=== PATIENT | male | born 1970 | race Caucasian/White ===

== ENCOUNTER 2019-02-20 22:18 | Inpatient (IN) ==
--- NOTE | 2019-02-20 22:40 | Emergency Department Note ---
Weakness HPI - General Chief complaint: Stroke Symptoms Stated complaint: Numbness to right side Time Seen by Provider: 02/20/19 22:34 Source: family Mode of arrival: ambulatory Limitations: no limitations - History of Present Illness HPI Narrative: Patient reports tingling to the right lower extremity as well as 2 fingers right hand. His symptoms started today at about 2 PM. Prior history of stroke, smoker, on home hemodialysis. His dialysis physician is at [facility], used to be Dr. Gavin. He denies chest pain, denies shortness of breath. He's had no nausea vomiting, no facial droop, no diplopia. He denies headache. No abdominal pain, - Related Data Home Medications Medication Instructions Recorded Confirmed Darifenacin Hydrobromide [Enablex] 7.5 mg PO HS 05/23/15 05/23/15 Epoetin Chris [Epogen] 8,000 unit SC 3XW 05/23/15 05/23/15 Esomeprazole Magnesium 40 mg PO DAILY 05/23/15 05/23/15 Fesoterodine Fumarate [Toviaz] 8 mg PO DAILY 05/23/15 05/23/15 Insulin Aspart [Novolog] 0 unit SC UD 05/23/15 05/23/15 Insulin Glargine, Human [Lantus] 7.5 units SC BID@05/23/15 05/23/15 Lanthanum Carbonate [Fosrenol] 2,000 mg CHEWED BIDP PRN 05/23/15 05/23/15 Lanthanum Carbonate [Fosrenol] 3,000 mg CHEWED TIDCC 05/23/15 05/23/15 Levothyroxine [Synthroid] 50 mcg PO DAILY 05/23/15 05/23/15 Lisinopril [Zestril] 40 mg PO BID 05/23/15 05/23/15 Tamsulosin [Flomax] 0.4 mg PO HS 05/23/15 05/23/15 cloNIDine HCL [Catapres] 0.2 mg PO DAILY 05/23/15 05/23/15 clonazePAM [KlonoPIN] 1 mg PO HSP PRN 05/23/15 05/23/15 oxyCODONE HCL [Oxycodone HCl] 7.5 - 15 mg PO QIDP PRN 05/23/15 05/23/15 Allergies Allergy/AdvReac Type Severity Reaction Status Date / Time gabapentin [From NEURONTIN] AdvReac Mild BEHAVED Verified 02/20/19 22:26 IF INTOXICATED morphine [MORPHINE] AdvReac Mild ITCH Verified 02/20/19 22:26 Review of Systems Constitutional: Reports: weakness Eyes: Denies: eye pain ENT ED: Denies: ear pain, throat pain Cardiovascular: Reports: dyspnea on exertion. Denies: chest pain Respiratory: Reports: shortness of breath Gastrointestinal: Denies: abdominal pain, nausea, vomiting Musculoskeletal: Denies: back pain Past Medical History - Past Medical History [facility] Narrative: History of blindness left eye. History of CVA. History of COPD. Source: nursing notes reviewed Medical history: Reports: CAD (coronary artery disease), chronic anticoagulation, CVA, DM, hypertension, renal disease, thyroid disease Psychiatric history: Reports: no psych history Surgical history ED: Reports: vascular surgery - Social History smoking status: Never smoker Physical Exam Limitations: no limitations General appearance: alert, in no apparent distress Head: atraumatic, normocephalic, normal inspection Eye: Present: normal appearance, EOMI, visual kellogg intact, other (visual field intact to the right eye. Patient is blind on the left side.). Absent: periorbital swelling, periorbital tenderness ENT: normal exam, normal oropharynx, mucous membranes moist, other (speech is not slurred. Tongue is midline.) Neck: Present: normal inspection, full ROM, trachea midline. Absent: tenderness, meningismus Chest: Present: normal inspection, symmetric chest wall rise Respiratory: Present: normal lung sounds bilaterally Cardiovascular: Present: regular rate, normal heart sounds, systolic murmur, other (occasional extra beat audible.) Abdominal: Present: soft. Absent: distention, tenderness, guarding Extremities: Present: normal inspection, full ROM. Absent: tenderness, joint swelling Back: Present: full ROM. Absent: CVA tenderness (R), CVA tenderness (L) Neurological: Present: alert, oriented X3, motor sensory deficit, other (patient has deficit of sensation to the side of the arm, forearm on the right side. Also lateral side of right leg. Going down to the area of the ankle. With diminished sensation over the entire right lateral leg. Normal reflexes, normal motor movement to both upper and lower extremities.) Psychiatric: Present: normal affect Skin: Present: warm, normal color Course - Reevaluation(s) Reevaluation #1: Patient went to CT scan emergently. We followed the stroke code stroke protocol. Head CT showing no hydrocephalus. No parenchymal bleed. He did have a white matter hypodensity adjacent to the left caudate nucleus suspicious for lacunar infarct. Started on small amount of IV fluids up. He does take Plavix which he states he has taken today. I spoke with the stroke neurologist Dr. Hendricks of [place]. They did not recommend TPA as he is out of the window. He is not a candidate for CT angiogram of his neck or head as his creatinine is 12. They recommended admitting him to the hospital here for further stroke monitoring and workup. Vital Signs Temperature 98.3 F 02/20/19 22:20 Pulse Rate 74 02/20/19 22:20 Respiratory Rate 15 02/20/19 22:20 Blood Pressure 179/96 02/20/19 22:20 Pulse Oximetry (%) 100 02/20/19 22:20 Temperature 98.3 F 02/20/19 22:20 Pulse Rate 74 02/20/19 22:20 Respiratory Rate 15 02/20/19 22:20 Blood Pressure 179/96 02/20/19 22:20 Pulse Oximetry (%) 100 02/20/19 22:20 Weakness - MDM Narrative Medical decision making narrative: Final impression is acute stroke, left hemispheric. Plan is hospital admission spoke with Dr. Montanez. - Lab Data Result diagrams: 02/20/19 22:25 02/20/19 22:25 Lab Results 02/20/19 02/20/19 02/20/19 Range/Units 22:25 22:25 22:25 WBC 5.2 (4.5-11.0) K/mcL RBC 3.22 L (4.50-5.90) M/mcL Hgb 10.9 L (13.5-16.5) g/dL Hct 30.9 L (41.0-55.0) % MCV 96.0 (80.0-100.0) fL MCH 33.8 (26.0-34.0) pg MCHC 35.2 (31.0-36.0) g/dL RDW 12.2 (11.5-14.5) % Plt Count 219 (140-440) K/mcL MPV 10.1 (7.4-10.4) fL Gran % 64.6 (38.0-78.0) % Lymph % (Auto) 21.0 (15.5-49.0) % [place] % (Auto) 9.9 (1.0-12.0) % Eos % (Auto) 3.5 (0.0-7.0) % Baso % (Auto) 1.0 (0.0-2.0) % Gran # 3.3 (1.8-8.0) K/mcL Lymph # (Auto) 1.1 L (1.5-4.8) K/mcL [place] # (Auto) 0.5 (0.1-0.9) K/mcL Eos # (Auto) 0.2 (0.0-0.7) K/mcL Baso # (Auto) 0.1 (0.0-0.3) K/mcL PT 13.3 (11.9-14.5) sec INR 1.0 (0.9-1.1) APTT 34 (20-37) sec Sodium 135 (133-145) mmol/L Potassium 4.7 (3.3-5.1) mmol/L Chloride 94 L (96-108) mmol/L Carbon Dioxide 23 (22-30) mmol/L Anion Gap 18.0 H (8-16) BUN 108 H* (6-20) mg/dl Creatinine 12.2 H* (0.7-1.2) mg/dl GFR Calculation 4 Glucose 281 H (70-105) mg/dL Calcium 8.1 L (8.6-10.4) mg/dl Hold Red Top Not Reportable Disposition Pt seen by [facility] [employer]/PA only: No Clinical Impression: Stroke Disposition: Xfer As Inpt ([facility]) Condition: Good Referrals: Gasper Clarke MD [Primary Care Provider] -
[2019-02-20 23:01] LABS: Basophils # (Auto) 0.1 K/mcL (0.0-0.3); Eosinophils # (Auto) 0.2 K/mcL (0.0-0.7); Eosinophils % (Auto) 3.5 % (0.0-7.0); Granulocytes % (Auto) 64.6 % (38.0-78.0); Lymphocytes # (Auto) 1.1 K/mcL (1.5-4.8); Mean Corpuscular HGB Conc 35.2 g/dL (31.0-36.0); Monocytes # (Auto) 0.5 K/mcL (0.1-0.9); Monocytes % (Auto) 9.9 % (1.0-12.0); Platelet Count 219 K/mcL (140-440); RBC 3.22 M/mcL (4.50-5.90); Red Cell Distribution Width 12.2 % (11.5-14.5)
[2019-02-20 23:20] LABS: Blood Urea Nitrogen 108 mg/dl (6-20)
[2019-02-20] MEDS ORDERED: 0.45 % SODIUM CHLORIDE 1,000 ML IV SCH (23:45)
[2019-02-20] MEDS ORDERED: ACETAMINOPHEN 325 MG TABLET PO PRN (23:55)
[2019-02-20] MEDS ORDERED: ONDANSETRON 4 MG/2 ML VIAL IV PRN (23:55)
[2019-02-21] MEDS ORDERED: ASPIRIN 81 MG TAB.CHEW CHEWED ONE (00:18)
[2019-02-21] MEDS: 0.45 % SODIUM CHLORIDE 500 ML IV SCH ×2 (00:22→01:01)
[2019-02-21] MEDS ORDERED: cloNIDine HCL 0.1 MG TABLET PO SCH ×2 (00:30→21:00)
[2019-02-21] MEDS ORDERED: amLODIPine 5 MG TABLET PO ONE (01:25)
[2019-02-21] MEDS ORDERED: amLODIPine 5 MG TABLET ONE (02:27)
[2019-02-21] MEDS ORDERED: NICOTINE 14 MG PATCH ONE (03:08)
--- NOTE | 2019-02-21 04:57 | Cat Scan Report ---
CLINICAL INFORMATION: Right leg and left numbness evaluate for CVA COMPARISON: None. TECHNIQUE: 2.5 mm helical slices were obtained in the skull base to vertex. Following reconstruction, axial reformatted images were reviewed at bone and parenchymal windows. The exam was performed using radiation dose optimization techniques including, but not limited to, automated exposure control, adjustment of the mA and/or kV according to patient size and use of iterative reconstruction technique. FINDINGS: The ventricles, sulci, fissures, and cisterns are symmetrically enlarged compatible with moderate atrophy unexpected for age (49). No extra-axial fluid collections identified. Extensive, predominantly nodular, dural calcification is seen along the seen along the falx, tentorium. Lesser, more linear, dural calcification is scattered throughout the cerebrum and cerebellum. Moderate patchy ischemic changes are noted in the deep cerebral white matter. There are also scattered remote lacunar infarcts in the basal ganglia ranging up to six mm in the right lentiform nucleus. A 7 mm old lacunar infarct is noted in the deep left frontal white matter. There is no acute cerebral hemorrhage, mass effect or edema Bone windows show no osseous abnormality. IMPRESSION: 1. No intracranial hemorrhage, edema or other acute finding 2. Moderate atrophy with moderate patchy chronic ischemic changes in the deep cerebral white matter - unexpected in this age 3. 7 mm old lacunar infarct deep left frontal white matter and a 6 mm remote lacunar infarct in the right lentiform nucleus. Scattered remote punctate lacunar infarcts throughout the basal ganglia. 4. Extensive nodular dural calcification including the tentorium and falx with lesser linear dural calcification throughout the cerebrum and cerebellum.. Possible etiologies include chronic intracranial hypotension, sarcoidosis, old tuberculosis, hyperthyroidism, and chronic renal failure. Interpreted and Authenticated by: Martin Gasca 02/21/19
[2019-02-21] MEDS ORDERED: DEXTROSE 50% 50 ML SYRINGE IV ONE (07:08)
[2019-02-21] MEDS ORDERED: DEXTROSE 50% 50 ML VIAL IV ONE ×2 (07:12→07:15)
--- NOTE | 2019-02-21 07:12 | Nephrology Consult Note ---
History of Present Illness - Reason for Consult Patient information: Note initiated : 02/21/19 at 7:09 am Patient: Conner Khan 49 y/o M admitted on 02/21/19 for Numbness to right side. Consult date: 02/21/19 end stage renal disease Requesting physician: Albaro Tellez - Chief Complaint Right sided tingling - History of Present Illness Conner Khan is a 49-year old male with end stage renal disease on home di alysis. He presented to ED for tingling of the right lower extremity and right hand 2 fingers and admitted. His left arm AV fistula accessed by his with button hole technique. He stated irregular schedule. Last dialysis was on Friday. Review of Systems Constitutional: no chills, no fever(s) Nose, mouth and throat: no nasal congestion, no sore throat Cardiovascular: no chest pain, no palpatations Respiratory: no cough, no wheezing Gastrointestinal: no abdominal pain, no nausea Genitourinary: no dysuria, no hematuria Musculoskeletal: no back pain, no joint swelling Integumentary: no rash, no wounds Neurological: no headache(s), no syncope Psychiatric: no anxiety, no panic attacks Endocrine: no cold intolerance, no heat intolerance Hematologic/Lymphatic: no easy bleeding, no easy bruising Allergic/Immunologic: no tongue swelling, no uticaria Past History Past medical history: Medical History Intractable nausea and vomiting (Chronic) Fever (Chronic) SIRS (systemic inflammatory response syndrome) (Chronic) Smoker (Chronic) RAD (reactive airway disease) (Chronic) Anxiety disorder (Chronic) Renal osteodystrophy (Chronic) BPH (benign prostatic hyperplasia) (Chronic) GERD (gastroesophageal reflux disease) (Chronic) DJD (degenerative joint disease) (Chronic) Gastroparesis (Chronic) Chronic pain (Chronic) Hypertension, essential (Chronic) Hypothyroidism (Chronic) Diabetes mellitus, type II (Chronic) End stage renal disease (Chronic) Past surgical history: Left arm AV fistula. Past family history: No history of kidney disease. Past social history: History of smoking. Medications and Allergies Home Medications Medication Instructions Recorded Confirmed Type Epoetin Chris [Epogen] 2,000 unit SC WEEKLY 05/23/15 02/21/19 History Insulin Aspart [Novolog] 0 unit SC UD 05/23/15 02/21/19 History Insulin Glargine, Human [Lantus] 7.5 units SC BID@11,23 05/23/15 02/21/19 History Lanthanum Carbonate [Fosrenol] 1,000 mg CHEWED TIDCC 05/23/15 02/21/19 History Lanthanum Carbonate [Fosrenol] 500 mg CHEWED BIDP PRN 05/23/15 02/21/19 History Levothyroxine [Synthroid] 50 mcg PO DAILY 05/23/15 02/21/19 History Lisinopril [Zestril] 20 mg PO BID 05/23/15 02/21/19 History cloNIDine HCL [Catapres] 0.2 mg PO HS 05/23/15 02/21/19 History clonazePAM [KlonoPIN] 1 mg PO HSP PRN 05/23/15 02/21/19 History oxyCODONE HCL [Oxycodone HCl] 7.5 - 15 mg PO QIDP PRN 05/23/15 02/21/19 History Calcium Carbonate [Tums] 500 mg PO PRN PRN 02/21/19 02/21/19 History Clopidogrel Bisulfate [Plavix] 75 mg PO DAILY 02/21/19 02/21/19 History Methadone HCl [Dolophine HCl] 10 mg PO TID 02/21/19 02/21/19 History Nut.tx.impaired Renal Fxn,Soy 237 ml PO Q4H 02/21/19 02/21/19 History [Nepro] Pnv No.122/Iron/Folic Acid 1 each PO DAILY 02/21/19 02/21/19 History [ Multi Tablet] amLODIPine [Norvasc] 10 mg PO DAILY 02/21/19 02/21/19 History Allergies Allergy/AdvReac Type Severity Reaction Status Date / Time gabapentin [From NEURONTIN] AdvReac Mild BEHAVED Verified 02/20/19 22:26 IF INTOXICATED morphine [MORPHINE] AdvReac Mild ITCH Verified 02/20/19 22:26 Exam - Vital Signs Vital signs: Temp Pulse Resp BP Pulse Ox 97.9 F 61 18 164/76 99 02/21/19 04:00 02/21/19 04:00 02/21/19 04:00 02/21/19 04:00 02/21/19 04:00 - General Appearance General appearance: appears started age EENT: mucous membranes moist Neck: supple Respiratory: clear Cardiology: no edema Gastrointestinal: no tenderness Integumentary: warm and dry Neurologic: alert and oriented x3 Musculoskeletal: no deformities Psychiatric: mood/affect appropriate Results - Lab Results 02/20/19 22:25 02/20/19 22:25 Most recent lab results Calcium 8.1 mg/dl (8.6-10.4) L 02/20/19 22:25 Assessment and Plan (1) End stage renal disease The patient is on home dialysis through left arm AV fistula with button hole technique by his . He stated irregular schedule. Last dialysis was on Friday. He declined AV fistula to be accessed by hospital staff. Plan: Hemodialysis at home if discharged today. Status: Chronic Priority: Medium
[2019-02-21] MEDS ORDERED: ASPIRIN 81 MG TAB.CHEW PO ONE (07:35)
[2019-02-21 07:36] LABS: Basophils # (Auto) 0 K/mcL (0.0-0.3); Basophils % (Auto) 0.8 % (0.0-2.0); Eosinophils # (Auto) 0.2 K/mcL (0.0-0.7); Lymphocytes # (Auto) 1.4 K/mcL (1.5-4.8); Lymphocytes % (Auto) 26.2 % (15.5-49.0); Mean Cell Volume 96.9 fL (80.0-100.0); Mean Corpuscular HGB Conc 33.9 g/dL (31.0-36.0); Monocytes # (Auto) 0.7 K/mcL (0.1-0.9); Platelet Count 197 K/mcL (140-440); RBC 3.01 M/mcL (4.50-5.90); Red Cell Distribution Width 12.9 % (11.5-14.5)
--- NOTE | 2019-02-21 07:43 | Internal Med History&Physical ---
Medical - H&P: HPI Patient information: Note initiated : 02/21/19 at 7:41 am Service Date, if different from initiated Date: [] Patient: Conner Khan a 49 y/o M admitted on 02/21/19 for Numbness to right side. Chief Complaint: [] History of present illness: Mr. Khan is a 49 year old M Presents to the ED with right side deficits. Patient is on dialysis has a history of diabetes and hypertension and a stroke in 2016, reports since 1400 having right arm and leg numbness and tingling eventually facial numbness. Patient states that yesterday he developed some perioral tingling and numbness which happens to him on occasion when he states his calcium goes low. He also gets some tingling other places body arms shoulders hands. Will concern at this time was when it moved to his hand it went up towards his arm and he had similar symptoms a few days prior to his first stroke in 2016. Which is why he presented to the ED. His calcium is mildly low. And ask if his symptoms are changed overnight he says he cannot tell. And discussing this further with him he does feel it is more related to his calcium than a stroke. He has had some diarrhea as since August. Patient was seen at [facility] in November for weakness. He was told at that time he had C. difficile antibodies but not active disease. Denies any focal weakness. He did have a stroke 2016 and has some residual slurring. CT brain in the ED showed old lacunar infarcts. Review of Systems: Pertinent positives as above. Denies head ache/fever/chills/nausea/vomiting/chest or abdominal pain/cough/dyspnea. Remaining 10 point review of system reviewed negative Medical - H&P: PMH Medical history: Medical History Intractable nausea and vomiting (Chronic) Fever (Chronic) SIRS (systemic inflammatory response syndrome) (Chronic) Smoker (Chronic) RAD (reactive airway disease) (Chronic) Anxiety disorder (Chronic) Renal osteodystrophy (Chronic) BPH (benign prostatic hyperplasia) (Chronic) GERD (gastroesophageal reflux disease) (Chronic) DJD (degenerative joint disease) (Chronic) Gastroparesis (Chronic) Chronic pain (Chronic) Hypertension, essential (Chronic) Hypothyroidism (Chronic) Diabetes mellitus, type II (Chronic) End stage renal disease (Chronic) Surgical history: vascular surgery Left upper extremity fistula Parathyroid gland surgery Left eye surgery with graft from the abdomen to the eye socket Tonsillectomy Family history: Mother cancer Father had arrhythmia Social history: Patient smokes three quarters of pack per day drinks alcohol rarely lives with his Medical - H&P: Meds Home Medications Medication Instructions Recorded Confirmed Type Epoetin Chris [Epogen] 2,000 unit SC WEEKLY 05/23/15 02/21/19 History Insulin Aspart [Novolog] 0 unit SC UD 05/23/15 02/21/19 History Insulin Glargine, Human [Lantus] 7.5 units SC BID@05/23/15 02/21/19 History Lanthanum Carbonate [Fosrenol] 1,000 mg CHEWED TIDCC 05/23/15 02/21/19 History Lanthanum Carbonate [Fosrenol] 500 mg CHEWED BIDP PRN 05/23/15 02/21/19 History Levothyroxine [Synthroid] 50 mcg PO DAILY 05/23/15 02/21/19 History Lisinopril [Zestril] 20 mg PO BID 05/23/15 02/21/19 History cloNIDine HCL [Catapres] 0.2 mg PO HS 05/23/15 02/21/19 History clonazePAM [KlonoPIN] 1 mg PO HSP PRN 05/23/15 02/21/19 History oxyCODONE HCL [Oxycodone HCl] 7.5 - 15 mg PO QIDP PRN 05/23/15 02/21/19 History Calcium Carbonate [Tums] 500 mg PO PRN PRN 02/21/19 02/21/19 History Clopidogrel Bisulfate [Plavix] 75 mg PO DAILY 02/21/19 02/21/19 History Methadone HCl [Dolophine HCl] 10 mg PO TID 02/21/19 02/21/19 History Nut.tx.impaired Renal Fxn,Soy 237 ml PO Q4H 02/21/19 02/21/19 History [Nepro] Pnv No.122/Iron/Folic Acid 1 each PO DAILY 02/21/19 02/21/19 History [ Multi Tablet] amLODIPine [Norvasc] 10 mg PO DAILY 02/21/19 02/21/19 History Allergies Allergy/AdvReac Type Severity Reaction Status Date / Time gabapentin [From NEURONTIN] AdvReac Mild BEHAVED Verified 02/20/19 22:26 IF INTOXICATED morphine [MORPHINE] AdvReac Mild ITCH Verified 02/20/19 22:26 Medical - H&P: Exam - Constitutional Vitals: Temp Pulse Resp BP Pulse Ox 97.9 F 61 18 164/76 99 02/21/19 04:00 02/21/19 04:00 02/21/19 04:00 02/21/19 04:00 02/21/19 04:00 Exam: General: Alert, Awake, No acute Distress Eyes/N/T: Right eye EOMI, DMM Head/Neck: neck supple, normocephalic atraumatic, negative chvostek's sign CV: RRR, No murmurs, normal s1/s2 Pulm: Clear b/l, no wheezing/rhonchi/rales Abd: soft, nontender, +BS x4 Ext: no clubbing/cyanosis/edema Neuro: Alert, is decreased sensation in the right extremity, no pronator drift. Strength is symmetrical bilateral upper and lower Skin: warm/dry Medical - H&P: Reslt - Labs CBC & Chem 7: 02/21/19 06:58 02/21/19 06:58 Labs: Short CBC 02/20/19 02/21/19 Range/Units 22:25 06:58 WBC 5.2 5.4 (4.5-11.0) K/mcL Hgb 10.9 L 9.9 L (13.5-16.5) g/dL Hct 30.9 L 29.2 L (41.0-55.0) % Plt Count 219 197 (140-440) K/mcL [facility] 02/20/19 22:25 Sodium 135 Potassium 4.7 Chloride 94 L Carbon Dioxide 23 BUN 108 H* Creatinine 12.2 H* Glucose 281 H Calcium 8.1 L - Impressions CT brain with old lacunar infarcts left frontal and right lentiform nucleus Medical - H&P: A/P - Narrative A/P Narrative: A: *Right arm leg numbness/tingling (h/o CVA 2015 with residual slurring) CVA vs hypocalcemia: *Hypocalcemia, mild: *ESRD: *Anemia of CD: *DM: *HTN: *Anxiety: *Chr Pain: *Hypothyroid: tsh wnl *Tobacco abuse * P: -Gentle IV fluids o/n -Allow permissive hypertension first 24 hours -Pending MRI, carotids, echo -Aspirin/statin started -lipid panel -check plavix resistance lab -Neprho for HD -calcium - -pt/ot -ppx: heparin Medical - H&P: Qual - Stroke Onset of Symptoms Date: 02/20/19 Onset of Symptoms Time: 16:00 Symptom Onset Unknown: No - VTE Deep Vein Thrombosis/Pulmonary Embolism Present on Admission: No
[2019-02-21 08:18] LABS: ALT/SGPT 39 U/l (0-40); Albumin 3.7 gm/dL (3.2-5.2); Albumin/Globulin Ratio 1.5 (1.0-2.3); Alkaline Phosphatase 97 U/L (39-117); Bilirubin,Direct < 0.2 mg/dL (0.0-0.3); Blood Urea Nitrogen 112 mg/dl (6-20); Gamma Glutamyl Transpeptidase 12 U/L (8-61)
[2019-02-21] MEDS ORDERED: amLODIPine 5 MG TABLET PO SCH (09:00)
[2019-02-21] MEDS: METHADONE 5 MG TABLET PO SCH ×4 (09:29→22:15)
[2019-02-21] MEDS: NICOTINE 14 MG PATCH TOPICAL SCH ×2 (09:30→09:34)
[2019-02-21] MEDS ORDERED: LABETALOL 5 MG/ML ML IV PRN (10:15)
[2019-02-21] MEDS ORDERED: CALCIUM CARBONATE 500 MG TAB.CHEW PO PRN (10:15)
[2019-02-21] MEDS ORDERED: ONDANSETRON 4 MG/2 ML VIAL IV PRN (10:15)
[2019-02-21] MEDS ORDERED: ACETAMINOPHEN 325 MG TABLET PO PRN ×2 (10:15)
[2019-02-21] MEDS ORDERED: LANTHANUM CARBONATE 500 MG TAB.CHEW PO PRN (10:15)
[2019-02-21] MEDS ORDERED: POLYETHYLENE GLYCOL 3350 17 GM PACKET PO PRN (10:15)
[2019-02-21] MEDS ORDERED: ATORVASTATIN 20 MG TABLET PO ONE (10:15)
[2019-02-21] MEDS ORDERED: oxyCODONE HCL 5 MG TABLET PO PRN (10:15)
[2019-02-21 10:17] LABS: HDL Cholesterol 33 mg/dl (>40); LDL Cholesterol,Calculated 68 mg/dl (SEE CHART)
[2019-02-21] MEDS ORDERED: INSULIN LISPRO 1 UNIT/0.01 ML UNIT SQ SCH (11:30)
[2019-02-21] MEDS ORDERED: CALCIUM GLUCONATE 4.65 MEQ/10 ML VIAL IV ONE (11:41)
[2019-02-21] MEDS: HEPARIN 5,000 UNIT/ML VIAL SQ SCH ×2 (11:56→22:14)
[2019-02-21] MEDS: INSULIN LISPRO 1 UNIT/0.01 ML UNIT SQ SCH ×3 (11:57→22:14)
[2019-02-21] MEDS: INSULIN GLARGINE, HUMAN 1 UNIT/0.01 ML SQ SCH ×2 (11:57→23:02)
[2019-02-21] MEDS ORDERED: CALCIUM GLUCONATE 9.3 MEQ in DEXTROSE 5% IN WATER 50 ML IV ONE (12:00)
--- NOTE | 2019-02-21 12:48 | Ultrasound Report ---
CLINICAL INFORMATION: Stroke COMPARISON: None. TECHNIQUE: Spectral Doppler velocity measurements were obtained in the proximal, mid and distal common and internal carotid, both vertebral and proximal external carotid arteries bilaterally. Supplemental color and power Doppler imaging was also obtained to optimize stenosis detection. In reporting, any internal carotid stenosis was indirectly quantified comparing the distal internal carotid velocity. For ratio comparison, the internal carotid artery, at the level of stenosis, was utilized in the numerator and the normal distal internal carotid artery velocity was utilized as the denominator. Velocities are validated with angiographic measurements extrapolated from diameter data - as defined by the Society of Radiologists in Ultrasound Consensus Conference .Radiology 2003; 229; 340 - 346. FINDINGS: See worksheet by the technologist for velocities in PACS IMPRESSION: Both common, internal and external carotid arteries are widely patent. There is mild intimal thickening and both carotid bifurcations Antegrade flow present in both vertebral arteries Please correlate with CTA CT Angiography or MRA MR Angiography if surgery is contemplated. Interpreted and Authenticated by: Martin Gasca 02/21/19
[2019-02-21] MEDS: LANTHANUM CARBONATE 500 MG TAB.CHEW PO SCH ×2 (12:57→17:43)
[2019-02-21] MEDS: 0.9 % SODIUM CHLORIDE 10 ML SYRINGE IV SCH ×2 (14:35→22:20)
[2019-02-21] MEDS ORDERED: METHADONE HCL 10 MG PO SCH (15:00)
--- NOTE | 2019-02-21 15:09 | Nephrology Progress Note ---
Subjective Patient information: Note initiated : 02/21/19 at 3:07 pm Patient: Conner Khan 49 y/o M admitted on 02/21/19 for Numbness to right side. Chief Complaint: Right sided tingling. Pertinent ROS: No shortness of breath. No edema. Objective - Vital Signs Vital signs: Vital Signs Temp Pulse Pulse Resp BP BP Pulse Ox 02/21/19 14:52 97.3 F 80 152/96 02/21/19 14:27 97.3 F 69 154/86 02/21/19 13:15 98.2 F 16 155/79 98 02/21/19 08:42 97.8 F 18 160/105 100 02/21/19 04:00 97.9 F 61 18 164/76 99 02/21/19 01:00 97.9 F 57 L 70 18 182/90 201/98 99 02/21/19 00:54 57 L 100 02/21/19 00:51 62 100 02/21/19 00:46 61 182/90 100 02/21/19 00:31 12 183/93 02/21/19 00:26 20 02/21/19 00:16 64 19 185/101 100 02/21/19 00:04 62 21 100 02/21/19 00:01 68 17 194/78 100 02/20/19 23:56 72 12 176/95 100 02/20/19 22:20 98.3 F 74 15 179/96 100 Intake and Output 02/21/19 02/21/19 02/21/19 05:59 13:59 21:59 Intake Total 32 824 Balance 32 824 Intake: IV 32 464 Sodium Chloride 0.45% 500 ml @ 32 464 50 mls/hr IV .Q10H JOSE Rx#: [id number] Oral 360 Other: Meal Lunch Percent of Meal Consumed 100% Feeding Ability Independent Weight 149 lb Intake & Output: Intake & Output 02/21/19 02/21/19 02/21/19 05:59 13:59 21:59 Intake Total 32 824 Balance 32 824 Weight 149 lb Intake: IV 32 464 Sodium Chloride 0.45% 500 ml @ 32 464 50 mls/hr IV .Q10H JOSE Rx#: [id number] Oral 360 Other: Meal Lunch Percent of Meal Consumed 100% Feeding Ability Independent - General Appearance General appearance: appears started age EENT: mucous membranes moist Neck: supple Respiratory: clear Cardiology: no edema Gastrointestinal: no tenderness Integumentary: warm and dry Neurologic: alert and oriented x3 Musculoskeletal: no deformities Psychiatric: mood/affect appropriate, cooperative - Lab 02/21/19 06:58 02/21/19 06:58 Most recent lab results Calcium 8.0 mg/dl (8.6-10.4) L 02/21/19 06:58 Phosphorus 3.4 mg/dL (2.7-4.5) 02/21/19 06:58 Magnesium 2.6 mg/dL (1.6-2.5) H 02/21/19 06:58 Assessment and Plan (1) End stage renal disease Conner Khan is a 49-year old male with end stage renal disease on home dialysis. He presented to ED for tingling of the right lower extremity and right hand 2 fingers and admitted. His left arm AV fistula accessed by his with button hole technique. He stated irregular schedule. Last dialysis was on Friday. Plan: Hemodialysis today. The patient seen and evaluated during hemodialysis at 14:55. Status: Chronic Priority: Medium
[2019-02-21] MEDS ORDERED: ATORVASTATIN 20 MG TABLET PO SCH (21:00)
[2019-02-21] MEDS ORDERED: clonazePAM 1 MG TABLET PO PRN (21:00)
[2019-02-21] MEDS ORDERED: FAMOTIDINE 20 MG TABLET PO SCH (21:00)
[2019-02-21] MEDS: LISINOPRIL 20 MG TABLET PO SCH (22:14)
[2019-02-22] MEDS: 0.9 % SODIUM CHLORIDE 10 ML SYRINGE IV SCH ×2 (05:52→14:00)
[2019-02-22 06:07] LABS: ALT/SGPT 41 U/l (0-40); Albumin 3.4 gm/dL (3.2-5.2); Albumin/Globulin Ratio 1.6 (1.0-2.3); Alkaline Phosphatase 92 U/L (39-117); Bilirubin,Direct < 0.2 mg/dL (0.0-0.3); Blood Urea Nitrogen 57 mg/dl (6-20); Gamma Glutamyl Transpeptidase 10 U/L (8-61); Uric Acid 2.2 mg/dL (2.5-8.0)
--- NOTE | 2019-02-22 06:57 | Nephrology Progress Note ---
Subjective Patient information: Note initiated : 02/22/19 at 6:55 am Patient: Conner Khan 49 y/o M admitted on 02/21/19 for Numbness to right side. Chief Complaint: Right sided tingling. Pertinent ROS: No edema. No shortness of breath. Objective - Vital Signs Vital signs: Vital Signs Temp Pulse Resp BP Pulse Ox 02/22/19 04:00 98.1 F 52 L 12 143/89 100 02/22/19 00:00 97.5 F 56 L 18 137/78 02/21/19 17:35 97.9 F 74 156/96 02/21/19 16:52 97.6 F 77 158/99 02/21/19 16:22 98.2 F 18 150/98 97 02/21/19 16:21 97.9 F 82 150/98 02/21/19 15:51 80 151/99 02/21/19 15:20 80 149/92 02/21/19 14:52 97.3 F 80 152/96 02/21/19 14:27 97.3 F 69 154/86 02/21/19 13:15 98.2 F 16 155/79 98 02/21/19 08:42 97.8 F 18 160/105 100 Intake and Output 02/21/19 02/22/19 02/22/19 21:59 05:59 13:59 Intake Total 360 240 Output Total 250 Balance 110 240 Intake: Oral 360 240 Output: Hemodialysis UF 250 Other: Meal Dinner Percent of Meal Consumed 100% Feeding Ability Independent # Bowel Movements 1 Weight 156 lb 8 oz Intake & Output: Intake & Output 02/21/19 02/22/19 02/22/19 21:59 05:59 13:59 Intake Total 360 240 Output Total 250 Balance 110 240 Weight 156 lb 8 oz Intake: Oral 360 240 Output: Hemodialysis UF 250 Other: Meal Dinner Percent of Meal Consumed 100% Feeding Ability Independent # Bowel Movements 1 - General Appearance General appearance: appears started age EENT: mucous membranes moist Neck: supple Respiratory: clear Cardiology: no edema Gastrointestinal: no tenderness Integumentary: warm and dry Neurologic: alert and oriented x3 Musculoskeletal: no deformities Psychiatric: mood/affect appropriate, cooperative - Lab 02/21/19 06:58 02/22/19 03:55 Most recent lab results Calcium 7.5 mg/dl (8.6-10.4) L 02/22/19 03:55 Phosphorus 2.6 mg/dL (2.7-4.5) L 02/22/19 03:55 Magnesium 2.2 mg/dL (1.6-2.5) 02/22/19 03:55 Assessment and Plan (1) End stage renal disease Conner Khan is a 49-year old male with end stage renal disease on home dialysis. Plan: Next hemodialysis tomorrow inpatient or at home. Status: Chronic Priority: Medium
[2019-02-22] MEDS ORDERED: CALCIUM GLUCONATE 4.65 MEQ in DEXTROSE 5% IN WATER 50 ML IV ONE (07:17)
--- NOTE | 2019-02-22 07:20 | Internal Med Progress Note ---
Medical - PN: Subj Patient information: Note initiated : 02/22/19 at 7:11 am Service Date, if different from initiated Date: [] Patient: Conner Khan 49 y/o M admitted on 02/21/19 for Numbness to right side. Chief Complaint: [] Interval history: Mr. Khan is a 49 year old M Presents to the ED with right side deficits. Patient is on dialysis has a history of diabetes and hypertension and a stroke in 2016, reports since 1400 having right arm and leg numbness and tingling eventually facial numbness. Patient states that yesterday he developed some perioral tingling and numbness which happens to him on occasion when he states his calcium goes low. He also gets some tingling other places body arms shoulders hands. Will concern at this time was when it moved to his hand it went up towards his arm and he had similar symptoms a few days prior to his first stroke in 2016. Which is why he presented to the ED. His calcium is mildly low. And ask if his symptoms are changed overnight he says he cannot tell. And discussing this further with him he does feel it is more related to his calcium than a stroke. He has had some diarrhea as since August. Patient was seen at [facility] in November for weakness. He was told at that time he had C. difficile antibodies but not active disease. Denies any focal weakness. He did have a stroke 2016 and has some residual slurring. CT brain in the ED showed old lacunar infarcts. 02/22 States his numbness and tingling is proving his leg little bit in his arm still on the head. No other complaints. Review of Systems: denies headache/fever/chills/nausea/vomiting/chest or abdominal pain/cough/dyspnea/diarrhea. Otherwise see above. - Constitutional Vitals: Vital Signs Temp Pulse Resp BP Pulse Ox 98.1 F 52 L 12 143/89 100 02/22/19 04:00 02/22/19 04:00 02/22/19 04:00 02/22/19 04:00 02/22/19 04:00 Period Temp Pulse Resp BP Sys/Joshua Pulse Ox Last 24 Hr 97.3 F-98.2 F 52-82 12-18 137-160/78-105 97-100 Intake and Output 02/21/19 02/22/19 02/22/19 21:59 05:59 13:59 Intake Total 360 240 Output Total 250 Balance 110 240 Weight 70.987 kg Intake & Output: Intake & Output 02/21/19 02/22/19 02/22/19 21:59 05:59 13:59 Intake Total 360 240 Output Total 250 Balance 110 240 Weight 70.987 kg Intake: Oral 360 240 Output: Hemodialysis UF 250 Other: Meal Dinner Percent of Meal Consumed 100% Feeding Ability Independent # Bowel Movements 1 Exam: General: Alert, Awake, No acute Distress Eyes/N/T: Right eye EOMI, Head/Neck: neck supple, CV: RRR, No murmurs, Pulm: Clear b/l, no wheezing/rhonchi/rales Abd: soft, nontender, +BS x4 Ext: no clubbing/cyanosis/edema Neuro: Alert, symmetrical strength bilaterally upper lower, Skin: warm/dry Medical - PN: Obj Da - Labs CBC & Chem 7: 02/21/19 06:58 02/22/19 03:55 Labs: Abnormal Lab Results 02/22/19 02/21/19 02/21/19 03:55 06:58 06:58 RBC 3.01 L Hgb 9.9 L Hct 29.2 L [place] % (Auto) 13.0 H Lymph # (Auto) 1.4 L Chloride Carbon Dioxide Anion Gap BUN 57 H Creatinine 7.2 H* Glucose 190 H Uric Acid 2.2 L Calcium 7.5 L Phosphorus 2.6 L Magnesium ALT 41 H Total Protein 5.5 L Globulin 2.1 L HDL Cholesterol 33 L 02/21/19 02/20/19 02/20/19 06:58 22:25 22:25 RBC 3.22 L Hgb 10.9 L Hct 30.9 L [place] % (Auto) Lymph # (Auto) 1.1 L Chloride 94 L Carbon Dioxide 19 L Anion Gap 19.0 H 18.0 H BUN 112 H* 108 H* Creatinine 12.1 H* 12.2 H* Glucose 45 L 281 H Uric Acid Calcium 8.0 L 8.1 L Phosphorus Magnesium 2.6 H ALT Total Protein Globulin HDL Cholesterol Meds: Medications Acetaminophen (Tylenol) 650 mg PO Q6HP PRN PRN Reason: PAIN/FEVER > 101 Amlodipine Besylate (Norvasc) 10 mg PO DAILY [facility] Atorvastatin Calcium (Lipitor) 40 mg PO HS [facility] Last Admin: 02/21/19 22:14 Dose: 40 mg Documented by: Calcium Carbonate/Glycine (Tums) 500 mg PO PRN PRN PRN Reason: Hypocalcemia Clonazepam (Klonopin) 1 mg PO HSP PRN PRN Reason: Sleep Clonidine HCl (Catapres) 0.2 mg PO [facility] Last Admin: 02/21/19 22:14 Dose: 0.2 mg Documented by: Clopidogrel Bisulfate (Plavix) 75 mg PO DAILY [facility] Diagnostic Test (Pha) (Accu-Chek) 1 each FS [facility] Last Admin: 02/21/19 22:15 Dose: 1 each Documented by: Famotidine (Pepcid) 20 mg PO [facility] Last Admin: 02/21/19 22:13 Dose: 20 mg Documented by: Heparin Sodium (Porcine) (Heparin) 5,000 unit SQ Q12 [facility] Last Admin: 02/21/19 22:14 Dose: 5,000 unit Documented by: Insulin Glargine (Lantus) 7.5 unit SQ BID@ [facility] Last Admin: 02/21/19 23:02 Dose: 7.5 units Documented by: Insulin Human Lispro (Humalog) 0 unit SQ [facility]; Protocol Last Admin: 02/21/19 22:14 Dose: Not Given Documented by: Labetalol HCl (Trandate) 0 mg IV Q10M PRN PRN Reason: htn Lanthanum Carbonate (Fosrenol) 500 mg PO BIDP PRN PRN Reason: SNACKS Lanthanum Carbonate (Fosrenol) 1,000 mg PO TIDCC [facility] Last Admin: 02/21/19 17:43 Dose: Not Given Documented by: Levothyroxine Sodium (Synthroid) 50 mcg PO ACB [facility] Lisinopril (Zestril) 20 mg PO BID [facility] Last Admin: 02/21/19 22:14 Dose: 20 mg Documented by: Methadone HCl (Dolophine) 10 mg PO TID [facility] Last Admin: 02/21/19 22:15 Dose: Not Given Documented by: Nicotine (Nicoderm) 14 mg TOPICAL DAILY@1000 [facility] Ondansetron HCl (Zofran) 4 mg IV Q4HP PRN PRN Reason: Nausea And Vomiting Oxycodone HCl (Roxicodone) 7.5 - 15 mg PO QIDP PRN PRN Reason: Pain Polyethylene Glycol (Miralax) 17 gm PO DAILYP PRN PRN Reason: Constipation Sodium Chloride (Saline Flush) 10 ml IV Q8 [facility] Last Admin: 02/22/19 05:52 Dose: 10 ml Documented by: Medical - PN: A/P - Time Spent With Patient Total time spent is greater than 50% in coordination of care (as documented) at patient's floor/unit and/or counseling patient: - Narrative A/P Narrative: A: *Right arm leg numbness/tingling (h/o CVA 2015 with residual slurring) CVA vs hypocalcemia vs complication elevated BUN/Cr 108/12: -carotids/echo unremarkable -symptoms improving *Hypocalcemia, mild: *ESRD: *Anemia of CD: *DM: *HTN: uncontrolled, 2/2 ?above vs baseline - *Anxiety: *Chr Pain: *Hypothyroid: tsh wnl *Tobacco abuse * P: -monitor BP -Pending MRI, -Aspirin, cont plavix, /statin started -check plavix resistance lab -Neprho for HD -calcium - -pt/ot -ppx: heparin Medical - PN: Qual - Stroke Onset of Symptoms Date: 02/20/19 Onset of Symptoms Time: 16:00 Symptom Onset Unknown: No - VTE Deep Vein Thrombosis/Pulmonary Embolism Present on Admission: No
[2019-02-22] MEDS ORDERED: LEVOTHYROXINE 50 MCG TABLET PO SCH (07:30)
[2019-02-22] MEDS: LANTHANUM CARBONATE 500 MG TAB.CHEW PO SCH ×3 (07:44→16:46)
[2019-02-22] MEDS: INSULIN LISPRO 1 UNIT/0.01 ML UNIT SQ SCH ×3 (07:55→18:41)
[2019-02-22] MEDS: METHADONE 5 MG TABLET PO SCH ×2 (08:01→16:45)
[2019-02-22] MEDS ORDERED: amLODIPine 10 MG TABLET PO SCH (09:00)
[2019-02-22] MEDS ORDERED: CLOPIDOGREL 75 MG TABLET PO SCH (09:00)
[2019-02-22] MEDS ORDERED: ASPIRIN 81 MG TAB.CHEW PO SCH (09:00)
[2019-02-22] MEDS: LISINOPRIL 20 MG TABLET PO SCH (09:12)
[2019-02-22] MEDS: HEPARIN 5,000 UNIT/ML VIAL SQ SCH (09:13)
[2019-02-22] MEDS ORDERED: NICOTINE 14 MG PATCH TOPICAL SCH (10:00)
[2019-02-22] MEDS: INSULIN GLARGINE, HUMAN 1 UNIT/0.01 ML SQ SCH (11:16)
[2019-02-22] MEDS ORDERED: DEXTROSE 31 GM ORAL.SUSP PO ONE (15:32)
--- NOTE | 2019-02-22 15:32 | Magnetic Resonance Report ---
CLINICAL INFORMATION: Stroke like symptoms - paresthesias in the right side COMPARISON: Head CT 02/20/2019 TECHNIQUE:Sagittal T1 FLAIR, axial T1 FLAIR, T2 FLAIR propeller, T2 propeller, gradient, diffusion, ADC and coronal T2 weighted images were acquired. FINDINGS: The ventricles, sulci, fissures and cisterns are slightly enlarged compatible with mild atrophy. There are no extra-axial fluid collections or masses are appreciated. A 6 mm remote lacunar infarct is noted in the amador radiata fibers of the posterior left frontal lobe. There is a 5 mm lacunar infarct in the anterior right lentiform nucleus and scattered punctate remote lacunar infarcts throughout the basal ganglia. A cluster three remote lacunar infarcts in the right parahippocampal gyrus range between two and 5 mm. there is a 1 mm old lacunar infarct in the left parahippocampal gyrus. A cluster of four remote lacunar infarcts in the mayi ranging up to 5.8 mm in the right pontomedullary junction. A 4 mm region of restricted diffusion in the left pontomedullary junction and a 14 x 5 mm region of restricted diffusion in the deep white matter of the mid left temporal lobe are compatible with acute nonhemorrhagic lacunar infarcts. No evidence of hemorrhage, edema or mass effect. Moderate patchy chronic ischemic changes in the deep periventricular white matter and a cluster five six foci of chronic ischemia in the mayi are appreciated. Signal void in the intracerebral arteries, extra-axial cranial nerves, pituitary and orbits are normal. Moderate fluid in the right mastoid air cells compatible with mastoiditis. Paranasal sinuses are clear IMPRESSION: 1. 4 mm acute lacunar infarct in left pontomedullary junction and 14 x 5 mm acute linear infarct in the deep mid left temporal white matter. No evidence for hemorrhage 2. 6 mm remote lacunar infarct in the posterior deep left frontal white matter and 5 mm remote lacunar infarct in the anterior right lentiform nucleus with scattered punctate remote lacunar infarcts in the basal ganglia and a cluster of three remote lacunar infarcts in the mayi ranging up to 5 mm. 3. Mild atrophy and patchy chronic ischemic changes of the cerebral white matter - more than expected for age. 4. Moderate right mastoiditis Vascular pathology should be considered in this patient including: collagen vascular disease is seen such as polyarteritis nodosa and lupus, illicit drug use (methamphetamine etc.), diabetic arteriosclerosis and hypercoagulability states predisposing to embolic or thrombotic phenomenon Interpreted and Authenticated by: Martin Gasca 02/22/19
--- NOTE | 2019-02-22 16:30 | Discharge Summary ---
Medical - DS: Prov Patient information: Note initiated : 02/22/19 at 4:27 pm Service Date, if different from initiated Date: [] Patient: Conner Khan 49 y/o M admitted on 02/21/19 for Numbness to right side. Chief Complaint: [] Date of admission: 02/21/19 01:00 Discharge date: 02/22/19 Primary care physician: Gasper Clarke Consults: 02/20/19 Consult to Physician [CONS] Stat Comment: Consulting Provider: Evelio Montanez Reason For Exam: Physician to Consult Consult to Physician [CONS] Stat Comment: Consulting Provider: Payam Kang Reason For Exam: Physician to Consult Medical - DS: Meds - Discharge Medications Prescriptions: Aspirin 81 mg PO DAILY #21 tab.chew Atorvastatin [Lipitor] 20 mg PO HS #30 tab Active and Home Medications: Home Medications Epoetin Chris [Epogen] 2,000 unit SC WEEKLY 05/23/15 [History Confirmed 02/21/19 Last Taken 02/14/19] Insulin Aspart [Novolog] 0 unit SC UD 05/23/15 [History Confirmed 02/21/19 Last Taken 02/20/19 22:00] Insulin Glargine, Human [Lantus] 7.5 units SC BID@,23 05/23/15 [History Confirmed 02/21/19 Last Taken 02/20/19 11:00] Lanthanum Carbonate [Fosrenol] 1,000 mg CHEWED TIDCC 05/23/15 [History Confirmed 02/21/19 Last Taken 02/21/19] Lanthanum Carbonate [Fosrenol] 500 mg CHEWED BIDP PRN 05/23/15 [History Confirmed 02/21/19 Last Taken 02/21/19] Levothyroxine [Synthroid] 50 mcg PO DAILY 05/23/15 [History Confirmed 02/21/19 Last Taken 02/20/19] Lisinopril [Zestril] 20 mg PO BID 05/23/15 [History Confirmed 02/21/19 Last Taken 02/21/19] cloNIDine HCL [Catapres] 0.2 mg PO HS 05/23/15 [History Confirmed 02/21/19 Last Taken 02/20/19 22:00] clonazePAM [KlonoPIN] 1 mg PO HSP PRN 05/23/15 [History Confirmed 02/21/19 Last Taken 02/20/19 21:00 0.5 mg] oxyCODONE HCL [Oxycodone HCl] 7.5 - 15 mg PO QIDP PRN 05/23/15 [History Confirmed 02/21/19 Last Taken 02/19/19] Calcium Carbonate [Tums] 500 mg PO PRN PRN 02/21/19 [History Confirmed 02/21/19 Last Taken 02/20/19 11:00] Clopidogrel Bisulfate [Plavix] 75 mg PO DAILY 02/21/19 [History Confirmed 02/21/19 Last Taken 02/20/19] Methadone HCl [Dolophine HCl] 10 mg PO TID 02/21/19 [History Confirmed 02/21/19 Last Taken 02/19/19] Nut.tx.impaired Renal Fxn,Soy [Nepro] 237 ml PO Q4H 02/21/19 [History Confirmed 02/21/19 Last Taken Unknown] Pnv No.122/Iron/Folic Acid [ Multi Tablet] 1 each PO DAILY 02/21/19 [History Confirmed 02/21/19 Last Taken 02/20/19] amLODIPine [Norvasc] 10 mg PO DAILY 02/21/19 [History Confirmed 02/21/19 Last Taken 02/20/19 22:00] Home Medications Epoetin Chris [Epogen] 2,000 unit SC WEEKLY 05/23/15 [History Confirmed 02/21/19 Last Taken 02/14/19] Insulin Aspart [Novolog] 0 unit SC UD 05/23/15 [History Confirmed 02/21/19 Last Taken 02/20/19 22:00] Insulin Glargine, Human [Lantus] 7.5 units SC BID@05/23/15 [History Confirmed 02/21/19 Last Taken 02/20/19 11:00] Lanthanum Carbonate [Fosrenol] 1,000 mg CHEWED TIDCC 05/23/15 [History Confirmed 02/21/19 Last Taken 02/21/19] Lanthanum Carbonate [Fosrenol] 500 mg CHEWED BIDP PRN 05/23/15 [History Confirmed 02/21/19 Last Taken 02/21/19] Levothyroxine [Synthroid] 50 mcg PO DAILY 05/23/15 [History Confirmed 02/21/19 Last Taken 02/20/19] Lisinopril [Zestril] 20 mg PO BID 05/23/15 [History Confirmed 02/21/19 Last Taken 02/21/19] cloNIDine HCL [Catapres] 0.2 mg PO HS 05/23/15 [History Confirmed 02/21/19 Last Taken 02/20/19 22:00] clonazePAM [KlonoPIN] 1 mg PO HSP PRN 05/23/15 [History Confirmed 02/21/19 Last Taken 02/20/19 21:00 0.5 mg] oxyCODONE HCL [Oxycodone HCl] 7.5 - 15 mg PO QIDP PRN 05/23/15 [History Confirmed 02/21/19 Last Taken 02/19/19] Calcium Carbonate [Tums] 500 mg PO PRN PRN 02/21/19 [History Confirmed 02/21/19 Last Taken 02/20/19 11:00] Clopidogrel Bisulfate [Plavix] 75 mg PO DAILY 02/21/19 [History Confirmed 02/21/19 Last Taken 02/20/19] Methadone HCl [Dolophine HCl] 10 mg PO TID 02/21/19 [History Confirmed 02/21/19 Last Taken 02/19/19] Nut.tx.impaired Renal Fxn,Soy [Nepro] 237 ml PO Q4H 02/21/19 [History Confirmed 02/21/19 Last Taken Unknown] Pnv No.122/Iron/Folic Acid [ Multi Tablet] 1 each PO DAILY 02/21/19 [History Confirmed 02/21/19 Last Taken 02/20/19] amLODIPine [Norvasc] 10 mg PO DAILY 02/21/19 [History Confirmed 02/21/19 Last Taken 02/20/19 22:00] Aspirin 81 mg PO DAILY #21 tab.chew 02/22/19 [Rx Last Taken Unknown] Atorvastatin [Lipitor] 20 mg PO HS #30 tab 02/22/19 [Rx Last Taken Unknown] plavix/asa for several weeks and then continue only one after discussion with primary care provider Medical - DS: Hosp Hospital course: Mr. Khan is a 49 year old M Mr. Khan is a 49 year old M Presents to the ED with right side deficits. Patient is on dialysis has a history of diabetes and hypertension and a stroke in 2016, reports since 1400 having right arm and leg numbness and tingling eventually facial numbness. Patient states that yesterday he developed some perioral tingling and numbness which happens to him on occasion when he states his calcium goes low. He also gets some tingling other places body arms shoulders hands. Will concern at this time was when it moved to his hand it went up towards his arm and he had similar symptoms a few days prior to his first stroke in 2016. Which is why he presented to the ED. His calcium is mildly low. And ask if his symptoms are changed overnight he says he cannot tell. And discussing this further with him he does feel it is more related to his calcium than a stroke. He has had some diarrhea as since August. Patient was seen at [facility] in November for weakness. He was told at that time he had C. difficile antibodies but not active disease. Denies any focal weakness. He did have a stroke 2016 and has some residual slurring. CT brain in the ED showed old lacunar infarcts. 02/22 States his numbness and tingling is proving his leg little bit in his arm still on the head. No other complaints. check a1c MRI returned and did show a small 4 mm acute lacunar infarct left pontomedullary medullary junction and a 5 x 14mm infarct in the left deep mid temporal white matter region. Also showed the old lacunar infarct the 6 mm in the left frontal and another old one in the anterior right lentiform and some old ones in the mayi. In gathering history on his Plavix and aspirin history. He had his first stroke in [facility] he was thought to have been on aspirin at that time and thus was placed on Plavix. However, he states he was not taking aspirin on a regular basis at that time. Additionally he has stopped taking his Plavix for a while and only recently started taking it regularly a month or so ago. The lab for Plavix resistance was sent out and still pending. I did discuss with him regarding dual antiplatelet for several weeks and then he can follow-up with primary care and decide which antiplatelet to continue on indefinitely. I talked to him regarding statin therapy addition. Discussed with him regarding importance of smoking cessation and diabetes control, and blood pressure control. Discharge diagnosis: Acute left hemispheric CVA hypocalcemia end-stage renal disease Secondary discharge diagnosis: Anemia of chronic disease hypertension anxiety chronic pain hypothyroidism tobacco abuse - Time Spent with Patient Total time spent providing and/or coordinating discharge services: Greater than 30 minutes Medical - DS: Exam - Constitutional Vitals: Vital Signs Temp Pulse Pulse Resp BP BP BP 02/22/19 12:00 97.6 F 67 18 146/92 02/22/19 08:00 98.1 F 70 16 155/84 02/22/19 04:00 98.1 F 52 L 12 143/89 02/22/19 00:00 97.5 F 56 L 18 137/78 02/21/19 17:35 97.9 F 74 156/96 02/21/19 16:52 97.6 F 77 158/99 Pulse Ox 02/22/19 12:00 100 02/22/19 08:00 100 02/22/19 04:00 100 02/22/19 00:00 02/21/19 17:35 02/21/19 16:52 Intake and Output 02/22/19 02/22/19 02/22/19 05:59 13:59 21:59 Intake Total 240 240 Balance 240 240 Intake: Oral 240 240 Other: Meal Dinner Breakfast Lunch Percent of Meal Consumed 100% 100% 100% Feeding Ability Independent Assist with Tray Set Up Weight 70.987 kg Patient Weight 02/23/19 05:59 Weight 70.987 kg Medical - DS: Data Labs on day of discharge: Labs from last 24 hours 02/22/19 03:55 Sodium 136 Potassium 4.3 Chloride 100 Carbon Dioxide 22 Anion Gap 14.0 BUN 57 H Creatinine 7.2 H* GFR Calculation 8 Glucose 190 H Uric Acid 2.2 L Calcium 7.5 L Phosphorus 2.6 L Magnesium 2.2 Total Bilirubin 0.3 Direct Bilirubin < 0.2 GGT 10 AST 27 ALT 41 H Alkaline Phosphatase 92 Lactate Dehydrogenase 227 Total Protein 5.5 L Albumin 3.4 Globulin 2.1 L Albumin/Globulin Ratio 1.6 Triglycerides 109 Medical - DS: A/P - Patient/Caregiver Discharge Instructions Activity: increase activity as tolerated Diet: Cardiac, Consistent Carbohydrate - Follow up Plan Follow up with: Gasper Clarke MD [Primary Care Provider] - 02/26/19 11:00 am Disposition: Home, Self-Care Prognosis: Fair Rehab Potential: Fair Medical - DS: Qual - VTE Deep Vein Thrombosis/Pulmonary Embolism Present on Admission: No
[2019-02-22 17:15] LABS: Hemoglobin A1C 5.6 % HGB (4.0-6.0)
== END 2019-02-22 18:27 | disposition home or self-care (01) | DRG 64 ==
LOC: ED 22:18 → ICU 02-21 01:00
PROVIDERS: ADMIT Internal Medicine; ATTEND Internal Medicine

== ENCOUNTER 2019-09-21 14:02 | Inpatient (IN) ==
--- NOTE | 2019-09-21 14:56 | Emergency Department Note ---
General Adult HPI - General Chief complaint: Blood Pressure Problem Stated complaint: Breathing difficulty, blood pressure problems Time Seen by Provider: 09/21/19 14:08 Source: family Mode of arrival: wheelchair Limitations: physical limitation - History of Present Illness HPI Narrative: 49-year-old male patient presents to the emergency department accompanied by his with chief complaint of suspicious blood pressure changes during his at home dialysis, cough, shortness of breath. Patient tells me on Friday when he underwent his dialysis they were only able to take 1.5 pounds off before he became profoundly hypotensive. His tells me she had to give him some IV fluids. Afterwards, he developed a vague sensation of holding his breath or not breathing normally. He would periodically take deep breaths in order to feel better. He is noted excessive phlegm to the back of his throat he is having hard time coughing up. He admits to continuing to smoke however, he has "cut down a lot". He is now taking "3 puffs off a cigarette and then putting it out". He denies any fever, sweats, chills. He denies any retrosternal chest pain or palpitations. He denies any nausea, vomiting, or diarrhea. His last bowel movement was yesterday. He admits to generalized malaise. He denies focal weakness. A review of his active problems shows the following: Stroke, hip avulsion fracture, intractable nausea/vomiting, seizures (systemic inflammatory response syndrome), daily smoker, reactive airway disease, anxiety, BPH, GERD, gastroparesis, chronic pain, hypertension, hypothyroidism, end-stage renal disease, type 2 diabetes. - Related Data Home Medications Medication Instructions Recorded Confirmed Epoetin Chris [Epogen] 2,000 unit SC WEEKLY 05/23/15 09/21/19 Insulin Aspart [Novolog] 0 unit SC UD 05/23/15 09/21/19 Insulin Glargine, Human [Lantus] 8 units SC BID@05/23/15 09/21/19 Lanthanum Carbonate [Fosrenol] 1,000 mg CHEWED TIDCC 05/23/15 09/21/19 Lanthanum Carbonate [Fosrenol] 500 mg CHEWED BIDP PRN 05/23/15 09/21/19 Levothyroxine [Synthroid] 50 mcg PO DAILY 05/23/15 09/21/19 Lisinopril [Zestril] 20 mg PO BID 05/23/15 09/21/19 cloNIDine HCL [Catapres] 0.2 mg PO HS 05/23/15 09/21/19 clonazePAM [KlonoPIN] 1 mg PO HSP PRN 05/23/15 09/21/19 oxyCODONE HCL [Oxycodone HCl] 15 mg PO QIDP PRN 05/23/15 09/21/19 Calcium Carbonate [Tums] 500 mg PO PRN PRN 02/21/19 09/21/19 Clopidogrel Bisulfate [Plavix] 75 mg PO DAILY 02/21/19 09/21/19 Methadone HCl [Dolophine HCl] 10 mg PO TID 02/21/19 09/21/19 Nut.tx.impaired Renal Fxn,Soy 237 ml PO Q4H 02/21/19 09/21/19 [Nepro] No122/Iron/Folic Acid 1 each PO DAILY 02/21/19 09/21/19 [ Multi Tablet] amLODIPine [Norvasc] 10 mg PO DAILY 02/21/19 09/21/19 Previous Rx's Medication Instructions Recorded Aspirin 81 mg PO DAILY #21 tab.chew 02/22/19 Atorvastatin [Lipitor] 20 mg PO HS #30 tab 02/22/19 Allergies Allergy/AdvReac Type Severity Reaction Status Date / Time gabapentin [From NEURONTIN] AdvReac Mild BEHAVED Verified 09/09/19 15:07 IF INTOXICATED morphine [MORPHINE] AdvReac Mild ITCH Verified 09/09/19 15:07 Review of Systems All systems ED: reviewed and negative except as stated. Past Medical History - Past Medical History Medical history: Reports: CAD (coronary artery disease), chronic anticoagulation, CVA, DM, hypertension, renal disease, thyroid disease Psychiatric history: Reports: no psych history Surgical history ED: Reports: vascular surgery - Social History smoking status: Current every day smoker Alcohol use: Reports: None Drug use: Reports: none Physical Exam Limitations: physical limitation General appearance: alert, in no apparent distress (No apparent respiratory distress.), thin, other (Patient is chronically ill-appearing 49-year-old male patient.) Head: atraumatic, normocephalic Eye: Present: normal appearance, PERRL, EOMI, scleral icterus. Absent: conjunctival injection ENT: Present: normal oropharynx, mucous membranes dry. Absent: nasal congestion Neck: Present: normal inspection, full ROM, trachea midline, lymphadenopathy Chest: Present: symmetric chest wall rise Respiratory: Present: prolonged expiratory phase, decreased breath sounds. Absent: respiratory distress, rales/crackles, wheezes, stridor, accessory muscle use Cardiovascular: Present: regular rate, normal rhythm. Absent: systolic murmur, diastolic murmur Abdominal: Present: soft, hypoactive bowel sounds. Absent: distention, tenderness, guarding, rebound, rigidity Extremities: Absent: normal capillary refill (Less than 3 seconds.), pedal edema Neurological: Present: alert, oriented X3 Psychiatric: Present: normal affect, depressed Skin: Present: warm, dry, other (Jaundiced appearing.). Absent: normal color Course Course Narrative: Patient was brought into the emergency department and a history and physical exam was performed. Saline lock was established and laboratory studies were drawn. Two-view chest x-ray was obtained and reviewed. A review of his laboratory studies show the following: CBC WBC 5.7, RBC 3.08, hemoglobin 9.5, hematocrit 28.4. Lactic acid 0.7. CMP potassium 5.8, chloride 89, anion gap 22, BUN 131, creatinine 12.0, glucose 176, all others within normal limits. Procalcitonin 0.21. Nasal swab for influenza was negative. Two-view chest x- ray showing bronchitis possibly asthma that stable. The blunted left costophrenic angle is unchanged and considered insignificant. After reviewing all the data I discussed these findings with the patient and his . He does have considerably elevated BUN and creatinine, coupled with hyperkalemia, necessitating that he undergo dialysis today. After reviewing all the data I discussed these findings with the patient. Due to the suspicious event that he suffered on this past Friday with hypotension during dialysis it seemed prudent to reach out to our on-call assembler motor vehicle to see if he could possibly be admitted tonight for dialysis. I spoke to our on- call assembler motor vehicle (Dr. Kang) and explained the patient situation and my thoughts about possibly dialyzing the patient tonight and see how he does. Dr. Kang has consented to consult on the patient to his hospitalization if he is going to be admitted. With this in mind, I reached out to our hospitalist (Dr. Melgar) and explained my thoughts about the patient needing brief hospitalization for dialysis. At this time Dr. Melgar has excepted the patient for an observation admission. He will consult closely with the assembler motor vehicle. I discussed all this with the patient and his . They verbalized understanding. Patient will be admitted under observation with care being provided by both the hospitalist (Dr. Mcnally) and assembler motor vehicle (Dr. Kang). All further treatment decisions and modalities to be carried out by the hospitalist and assembler motor vehicle. Vital Signs Temperature 97.3 F 09/21/19 14:05 Pulse Rate 65 09/21/19 14:05 Respiratory Rate 16 09/21/19 14:05 Blood Pressure 182/84 09/21/19 14:05 Pulse Oximetry (%) 100 09/21/19 14:05 Temperature 97.3 F 09/21/19 14:05 Pulse Rate 63 09/21/19 17:01 Respiratory Rate 9 L 09/21/19 17:01 Blood Pressure 180/82 09/21/19 17:01 Pulse Oximetry (%) 100 09/21/19 17:01 Medical Decision Making - Lab Data Lab results reviewed: Yes I reviewed the patient's lab results. Result diagrams: 09/21/19 14:44 09/21/19 14:44 Lab Results 09/21/19 09/21/19 09/21/19 Range/Units 14:44 14:44 14:44 WBC 5.7 (4.5-11.0) K/mcL RBC 3.08 L (4.50-5.90) M/mcL Hgb 9.5 L (13.5-16.5) g/dL Hct 28.4 L (41.0-55.0) % MCV 92.2 (80.0-100.0) fL MCH 30.9 (26.0-34.0) pg MCHC 33.6 (31.0-36.0) g/dL RDW 16.2 H (11.5-14.5) % Plt Count 277 (140-440) K/mcL MPV 9.1 (7.4-10.4) fL Gran % 63.0 (38.0-78.0) % Lymph % (Auto) 16.7 (15.5-49.0) % Fisher % (Auto) 15.4 H (1.0-12.0) % Eos % (Auto) 3.7 (0.0-7.0) % Baso % (Auto) 1.2 (0.0-2.0) % Gran # 3.6 (1.8-8.0) K/mcL Lymph # (Auto) 1.0 L (1.5-4.8) K/mcL Fisher # (Auto) 0.9 (0.1-0.9) K/mcL Eos # (Auto) 0.2 (0.0-0.7) K/mcL Baso # (Auto) 0.1 (0.0-0.3) K/mcL VBG Lactic Acid (0.5-2.0) mmol/L Sodium 136 (133-145) mmol/L Potassium 5.8 H (3.3-5.1) mmol/L Chloride 89 L (96-108) mmol/L Carbon Dioxide 25 (22-30) mmol/L Anion Gap 22.0 H (8-16) BUN 131 H* (6-20) mg/dl Creatinine 12.0 H* (0.7-1.2) mg/dl GFR Calculation 4 Glucose 176 H (70-105) mg/dL Calcium 9.4 (8.6-10.4) mg/dl Total Bilirubin 0.3 (0.0-1.0) mg/dL AST 21 (0-37) U/l ALT 19 (0-40) U/l Alkaline Phosphatase 95 (39-117) U/L Total Protein 7.1 (5.9-8.4) gm/dL Albumin 4.2 (3.2-5.2) gm/dL Globulin 2.9 (2.2-3.7) gm/dL Albumin/Globulin Ratio 1.4 (1.0-2.3) Procalcitonin 0.21 (<0.10) ng/mL 09/21/19 Range/Units 14:50 WBC (4.5-11.0) K/mcL RBC (4.50-5.90) M/mcL Hgb (13.5-16.5) g/dL Hct (41.0-55.0) % MCV (80.0-100.0) fL MCH (26.0-34.0) pg MCHC (31.0-36.0) g/dL RDW (11.5-14.5) % Plt Count (140-440) K/mcL MPV (7.4-10.4) fL Gran % (38.0-78.0) % Lymph % (Auto) (15.5-49.0) % Fisher % (Auto) (1.0-12.0) % Eos % (Auto) (0.0-7.0) % Baso % (Auto) (0.0-2.0) % Gran # (1.8-8.0) K/mcL Lymph # (Auto) (1.5-4.8) K/mcL Fisher # (Auto) (0.1-0.9) K/mcL Eos # (Auto) (0.0-0.7) K/mcL Baso # (Auto) (0.0-0.3) K/mcL VBG Lactic Acid 0.7 (0.5-2.0) mmol/L Sodium (133-145) mmol/L Potassium (3.3-5.1) mmol/L Chloride (96-108) mmol/L Carbon Dioxide (22-30) mmol/L Anion Gap (8-16) BUN (6-20) mg/dl Creatinine (0.7-1.2) mg/dl GFR Calculation Glucose (70-105) mg/dL Calcium (8.6-10.4) mg/dl Total Bilirubin (0.0-1.0) mg/dL AST (0-37) U/l ALT (0-40) U/l Alkaline Phosphatase (39-117) U/L Total Protein (5.9-8.4) gm/dL Albumin (3.2-5.2) gm/dL Globulin (2.2-3.7) gm/dL Albumin/Globulin Ratio (1.0-2.3) Procalcitonin (<0.10) ng/mL - Radiology Data Radiology results reviewed: Yes I reviewed the patient's radiology results. Ordering Physician: Kimani Laird PA-C Date of Service: 09/21/19 Procedure(s): XR chest 2V Accession Number(s): [id number] CLINICAL INFORMATION: 49 y/o M. SOB. R effusion noted on CXR 09/09/19. COMPARISON: 09/09/2019 FINDINGS: Heart size, mediastinum and pulmonary vessels are normal. The lung volumes are elevated is mild wall thickening of bronchi suggesting bronchitis or asthma. No infiltrates. Left lateral costophrenic angle is blunted which may be due to minor scarring or effusion. No change. Bone soft tissues normal IMPRESSION: Bronchitis or asthma - stable . Blunting of the left lateral costophrenic angle is unchanged and may represent a tiny effusion versus scarring. It is almost certainly insignificant Interpreted and Authenticated by: Martin Gasca 09/21/19 - EKG Data EKG #1 EKG attestation: Yes I reviewed and interpreted this EKG., Yes There are no EKG findings of acute coronary syndrome, Yes This EKG will be read by heeler machine Disposition Pt seen by [employer]OCIATE/PA only: Yes Clinical Impression: COPD with hypoxia, ESRD (end stage renal disease) on dialysis Disposition: Xfer As Outpt/Obs ([facility]) Condition: Fair Additional Instructions: Patient is going to be admitted to the hospital under observation with the care being provided by the hospitalist (Dr. Melgar) in consultation with the ne phrologist (Dr. Dial). All further treatment studies and modalities to be carried out by the hospitalist and assembler motor vehicle. Referrals: Gasper Clarke MD [Primary Care Provider] - Time of Disposition: 17:11
[2019-09-21 15:10] LABS: Basophils # (Auto) 0.1 K/mcL (0.0-0.3); Basophils % (Auto) 1.2 % (0.0-2.0); Eosinophils # (Auto) 0.2 K/mcL (0.0-0.7); Eosinophils % (Auto) 3.7 % (0.0-7.0); Hematocrit 28.4 % (41.0-55.0); Hemoglobin 9.5 g/dL (13.5-16.5); Lymphocytes % (Auto) 16.7 % (15.5-49.0); Mean Cell Volume 92.2 fL (80.0-100.0); Mean Corpuscular HGB Conc 33.6 g/dL (31.0-36.0); Mean Platelet Volume 9.1 fL (7.4-10.4); Monocytes # (Auto) 0.9 K/mcL (0.1-0.9); Monocytes % (Auto) 15.4 % (1.0-12.0); Platelet Count 277 K/mcL (140-440); RBC 3.08 M/mcL (4.50-5.90); Red Cell Distribution Width 16.2 % (11.5-14.5); WBC 5.7 K/mcL (4.5-11.0)
--- NOTE | 2019-09-21 15:25 | XRay Report ---
CLINICAL INFORMATION: 49 y/o M. SOB. R effusion noted on CXR 09/09/19. COMPARISON: 09/09/2019 FINDINGS: Heart size, mediastinum and pulmonary vessels are normal. The lung volumes are elevated is mild wall thickening of bronchi suggesting bronchitis or asthma. No infiltrates. Left lateral costophrenic angle is blunted which may be due to minor scarring or effusion. No change. Bone soft tissues normal IMPRESSION: Bronchitis or asthma - stable . Blunting of the left lateral costophrenic angle is unchanged and may represent a tiny effusion versus scarring. It is almost certainly insignificant Interpreted and Authenticated by: Martin Gasca 09/21/19
[2019-09-21 15:32] LABS: ALT/SGPT 19 U/l (0-40); AST/SGOT 21 U/l (0-37); Albumin 4.2 gm/dL (3.2-5.2); Albumin/Globulin Ratio 1.4 (1.0-2.3); Alkaline Phosphatase 95 U/L (39-117); Bilirubin,Total 0.3 mg/dL (0.0-1.0); Calcium 9.4 mg/dl (8.6-10.4); Carbon Dioxide 25 mmol/L (22-30); Globulin 2.9 gm/dL (2.2-3.7); Glucose 176 mg/dL (70-105)
[2019-09-21 15:47] LABS: Blood Urea Nitrogen 131 mg/dl (6-20); Chloride 89 mmol/L (96-108); Glomerular Filtration Rate 4
--- NOTE | 2019-09-21 17:08 | Nephrology Consult Note ---
History of Present Illness - Reason for Consult Patient information: Note initiated : 09/21/19 at 5:06 pm Patient: Conner Khan 49 y/o M admitted on for Breathing difficulty, blood pressure problems. Consult date: 09/21/19 end stage renal disease, hyperkalemia Requesting physician: Kimani Laird - Chief Complaint Intradialytic hypotension - History of Present Illness Conner Khan is a 49-year-old male with end-stage renal disease on home hemodialysis, diabetes mellitus type 2, hypertension, hypothyroidism, chronic obstructive pulmonary disease presented to the emergency department on 09/21/19. The patient gets home hemodialysis with help from his . He had an episode of hypotension on Friday and instructed for IV fluids. He completed the treatment. He has cough and shortness of breath, but no chest pain. He did not pass out. His work up was significant for inadequate clearance with hyperkalemia. He had AV fistula clotting requiring procedures recently and did not receive his treatments regularly. Review of Systems Constitutional: lethargy, weakness Nose, mouth and throat: no nasal congestion, no sore throat Cardiovascular: no chest pain, no palpatations Respiratory: dyspnea, wheezing Gastrointestinal: no abdominal pain, no nausea Genitourinary: no dysuria, no hematuria Musculoskeletal: no back pain, no neck pain Integumentary: no rash, no wounds Neurological: no confusion, no syncope Psychiatric: no anxiety, no panic attacks Endocrine: no cold intolerance, no heat intolerance Hematologic/Lymphatic: no easy bleeding, no easy bruising Allergic/Immunologic: no tongue swelling, no uticaria Past History Past medical history: Medical History Intractable nausea and vomiting (Chronic) Fever (Chronic) SIRS (systemic inflammatory response syndrome) (Chronic) Smoker (Chronic) RAD (reactive airway disease) (Chronic) Anxiety disorder (Chronic) Renal osteodystrophy (Chronic) BPH (benign prostatic hyperplasia) (Chronic) GERD (gastroesophageal reflux disease) (Chronic) DJD (degenerative joint disease) (Chronic) Gastroparesis (Chronic) Chronic pain (Chronic) Hypertension, essential (Chronic) Hypothyroidism (Chronic) Diabetes mellitus, type II (Chronic) End stage renal disease (Chronic) Past surgical history: Vascular surgery AV fistula Past family history: None remarkable. Past social history: Smoking status: Current every day smoker Alcohol use: Reports: None Drug use: Reports: none Medications and Allergies Home Medications Medication Instructions Recorded Confirmed Type Epoetin Chris [Epogen] 2,000 unit SC WEEKLY 05/23/15 09/21/19 History Insulin Aspart [Novolog] 0 unit SC UD 05/23/15 09/21/19 History Insulin Glargine, Human [Lantus] 8 units SC BID@11,23 05/23/15 09/21/19 History Lanthanum Carbonate [Fosrenol] 1,000 mg CHEWED TIDCC 05/23/15 09/21/19 History Lanthanum Carbonate [Fosrenol] 500 mg CHEWED BIDP PRN 05/23/15 09/21/19 History Levothyroxine [Synthroid] 50 mcg PO DAILY 05/23/15 09/21/19 History Lisinopril [Zestril] 20 mg PO BID 05/23/15 09/21/19 History cloNIDine HCL [Catapres] 0.2 mg PO HS 05/23/15 09/21/19 History clonazePAM [KlonoPIN] 1 mg PO HSP PRN 05/23/15 09/21/19 History oxyCODONE HCL [Oxycodone HCl] 15 mg PO QIDP PRN 05/23/15 09/21/19 History Calcium Carbonate [Tums] 500 mg PO PRN PRN 02/21/19 09/21/19 History Clopidogrel Bisulfate [Plavix] 75 mg PO DAILY 02/21/19 09/21/19 History Methadone HCl [Dolophine HCl] 10 mg PO TID 02/21/19 09/21/19 History Nut.tx.impaired Renal Fxn,Soy 237 ml PO Q4H 02/21/19 09/21/19 History [Nepro] No122/Iron/Folic Acid 1 each PO DAILY 02/21/19 09/21/19 History [ Multi Tablet] amLODIPine [Norvasc] 10 mg PO DAILY 02/21/19 09/21/19 History Aspirin 81 mg PO DAILY #21 tab.chew 02/22/19 09/21/19 Rx Atorvastatin [Lipitor] 20 mg PO HS #30 tab 02/22/19 09/21/19 Rx Allergies Allergy/AdvReac Type Severity Reaction Status Date / Time gabapentin [From NEURONTIN] AdvReac Mild BEHAVED Verified 09/09/19 15:07 IF INTOXICATED morphine [MORPHINE] AdvReac Mild ITCH Verified 09/09/19 15:07 Exam - Vital Signs Vital signs: Temp Pulse Resp BP Pulse Ox 97.3 F 66 12 179/94 100 09/21/19 14:05 09/21/19 16:41 09/21/19 16:41 09/21/19 16:41 09/21/19 16:41 - General Appearance General appearance: appears started age, chronically ill, fatigue EENT: mucous membranes dry Neck: supple Respiratory: wheezing Cardiology: no edema Gastrointestinal: no tenderness Integumentary: warm and dry Neurologic: no focal deficit, alert and oriented x3 Musculoskeletal: no deformities Psychiatric: mood/affect appropriate, cooperative Results - Lab Results 09/21/19 14:44 09/21/19 14:44 Most recent lab results Calcium 9.4 mg/dl (8.6-10.4) 09/21/19 14:44 Assessment and Plan (1) End stage renal disease Conner Khan is a 49-year-old male with end-stage renal disease on home hemodialysis, diabetes mellitus type 2, hypertension, hypothyroidism, chronic obstructive pulmonary disease presented to the emergency department on 09/21/19. The patient gets home hemodialysis with help from his . He had an episode of hypotension on Friday and instructed for IV fluids. He completed the treatment. He has cough and shortness of breath, but no chest pain. He did not pass out. His work up was significant for inadequate clearance with hyperkalemia. He had AV fistula clotting requiring procedures recently and did not receive his treatments regularly. End-stage renal disease on home hemodialysis ([facility]; 5 times weekly), through left arm AV fistula with button hole technique by his . AV fistula clotting requiring procedures recently and did not receive his treatments regularly resulting in inadequate clearance and hyperkalemia. reports QB 400. Hypertension with intradialytic hypotension episode. Recent Echo on 02/21/19: LVEF 65-70, no significant valvular disease, trace avery cardial effusion. Plan: Hemodialysis today and tomorrow for 3 hours and 2 kg UF target. Okay for his to cannulate AVF with buttonhole. Hold antihypertensives. Near syncope work up (Echo, CTA chest, Lower extremity Doppler US, Telemetry, Cardiac enzymes, Stress Test) if needed. Status: Chronic Priority: Medium (2) Hyperkalemia Please see above Status: Acute Priority: Medium (3) Intra-dialytic hypotension Please see above Status: Acute Priority: Medium
--- NOTE | 2019-09-21 17:44 | Internal Med History&Physical ---
Medical - H&P: HPI Patient information: Note initiated : 09/21/19 at 5:42 pm Service Date, if different from initiated Date: [] Patient: Conner Khan 49 y/o M admitted on for Breathing difficulty, blood pressure problems. Chief Complaint: [] History of present illness: This is a 49-year-old gentleman with a history of recurrent CVA, end-stage renal disease, on home dialysis, type 2 diabetes, essential hypertension, anxiety was brought to the ER because of chest congestion and shortness of breath. Patient does dialysis at home with his help of his . Patient had an episode of presyncope and hypotension 2 days ago since then patient was not doing dialysis adequately he was removing only 1 L. Since then patient noticed worsening shortness of breath and chest congestion. Patient denied any fever chills no cough no increasing sputum production. No urine symptoms patient does not make any urines no dysuria no pain no burning sensation. Denied any diarrhea. Patient mentioned have history of previous C. difficile but no active diarrhea. - Constitutional Constitutional: Present: chills, fatigue, lethargy, malaise. Absent: fever(s), frequent falls - EENT Ears: Absent: decreased hearing, ear discharge, ear pain Nose, mouth and throat: Absent: halitosis, headache(s), hoarseness - Cardiovascular Cardiovascular: Present: dyspnea, dyspnea on exertion, edema, lightheadedness, palpatations. Absent: chest pain, chest pain at rest, chest pain with activity - Respiratory Respiratory: Present: cough, dyspnea, dyspnea on exertion, wheezing, chest congestion. Absent: hemoptysis - Gastrointestinal Gastrointestinal: Absent: coffee ground emesis, constipation, cramping, diarrhea, dyspepsia - Genitourinary Genitourinary: Absent: genital lesions, genital pain, hematospermia, hematuria - Neurological Neurological: Present: dizziness. Absent: abnormal speech, behavioral changes, burning sensations, confusion, convulsions, focal weakness, frequent falls, headache(s) - Psychiatric Psychiatric: Present: anhedonia, anxiety, difficulty concentrating. Absent: abnormal sleep pattern, auditory hallucinations, behavioral changes, change in appetite, change in libido, depression - Endocrine Endocrine: Absent: cold intolerance, deeping of the voice, excessive sweating, fatigue, flushing Medical - H&P: PMH Problems Reviewed: Yes Medical history: Medical History Intractable nausea and vomiting (Chronic) Fever (Chronic) SIRS (systemic inflammatory response syndrome) (Chronic) Smoker (Chronic) RAD (reactive airway disease) (Chronic) Anxiety disorder (Chronic) Renal osteodystrophy (Chronic) BPH (benign prostatic hyperplasia) (Chronic) GERD (gastroesophageal reflux disease) (Chronic) DJD (degenerative joint disease) (Chronic) Gastroparesis (Chronic) Chronic pain (Chronic) Hypertension, essential (Chronic) Hypothyroidism (Chronic) Diabetes mellitus, type II (Chronic) End stage renal disease (Chronic) Surgical history: No pertinent surgical history Pertinent family history: No pertinent family history Social history: Social History No Social History Section defined Medical - H&P: Meds Home Medications Medication Instructions Recorded Confirmed Type Epoetin Chris [Epogen] 2,000 unit SC WEEKLY 05/23/15 09/21/19 History Insulin Aspart [Novolog] 0 unit SC UD 05/23/15 09/21/19 History Insulin Glargine, Human [Lantus] 8 units SC BID@23 05/23/15 09/21/19 History Lanthanum Carbonate [Fosrenol] 1,000 mg CHEWED TIDCC 05/23/15 09/21/19 History Lanthanum Carbonate [Fosrenol] 500 mg CHEWED BIDP PRN 05/23/15 09/21/19 History Levothyroxine [Synthroid] 50 mcg PO DAILY 05/23/15 09/21/19 History Lisinopril [Zestril] 20 mg PO BID 05/23/15 09/21/19 History cloNIDine HCL [Catapres] 0.2 mg PO HS 05/23/15 09/21/19 History clonazePAM [KlonoPIN] 1 mg PO HSP PRN 05/23/15 09/21/19 History oxyCODONE HCL [Oxycodone HCl] 15 mg PO QIDP PRN 05/23/15 09/21/19 History Calcium Carbonate [Tums] 500 mg PO PRN PRN 02/21/19 09/21/19 History Clopidogrel Bisulfate [Plavix] 75 mg PO DAILY 02/21/19 09/21/19 History Methadone HCl [Dolophine HCl] 10 mg PO TID 02/21/19 09/21/19 History Nut.tx.impaired Renal Fxn,Soy 237 ml PO Q4H 02/21/19 09/21/19 History [Nepro] No122/Iron/Folic Acid 1 each PO DAILY 02/21/19 09/21/19 History [ Multi Tablet] amLODIPine [Norvasc] 10 mg PO DAILY 02/21/19 09/21/19 History Aspirin 81 mg PO DAILY #21 tab.chew 02/22/19 09/21/19 Rx Atorvastatin [Lipitor] 20 mg PO HS #30 tab 02/22/19 09/21/19 Rx Allergies Allergy/AdvReac Type Severity Reaction Status Date / Time gabapentin [From NEURONTIN] AdvReac Mild BEHAVED Verified 09/09/19 15:07 IF INTOXICATED morphine [MORPHINE] AdvReac Mild ITCH Verified 09/09/19 15:07 Medical - H&P: Exam - Constitutional Vitals: Temp Pulse Resp BP Pulse Ox 97.3 F 63 11 L 168/88 100 09/21/19 14:05 09/21/19 17:01 09/21/19 17:41 09/21/19 17:41 09/21/19 17:01 General appearance: disheveled, mild distress - Head Head exam: Present: atraumatic, normal inspection, normocephalic - Expanded Head Exam Head exam: Absent: abrasion, Chao's sign, contusion, CSF otorrhea - Eye Eye exam: Present: conjunctival injection. Absent: nystagmus, periorbital swelling, periorbital tenderness Pupils: Present: PERRL - ENT ENT exam: Present: mucous membranes dry. Absent: mucous membranes moist, normal exam - Expanded ENT Exam Ear exam: Absent: auricular hematoma, auricular trauma, external canal tenderness Mouth exam: Present: dry mucosa. Absent: drooling, laceration, moist, muffled voice - Neck Neck exam: Present: normal inspection. Absent: lymphadenopathy, meningismus, tenderness - Respiratory Respiratory exam: Present: accessory muscle use, decreased breath sounds, prolonged expiratory phase, respiratory distress, wheezes - Cardiovascular Cardiovascular exam: Absent: normal rate and rhythm, bradycardia, clicks, d iastolic murmur, gallop, +S3, +S4 - GI/Abdominal GI/Abdominal exam: Present: normal bowel sounds, soft, distended. Absent: diminished bowel sounds - Back Exam Back exam: Absent: CVA tenderness (L), CVA tenderness (R), muscle spasm, normal inspection - Neurological Exam Neurological exam: Present: alert, oriented X3. Absent: motor sensory deficit - Expanded Neurological Exam Neurological exam expanded: Absent: ataxia, expressive aphasia, inattentive, memory loss-recent event, memory loss-remote event Patient oriented to: Present: person, place, time Speech: Absent: expressive aphasia, fluid speech - Psychiatric Psychiatric exam: Present: anxious, flat affect. Absent: agitated Medical - H&P: Reslt - Labs CBC & Chem 7: 09/21/19 14:44 09/21/19 14:44 Labs: Short CBC 09/21/19 Range/Units 14:44 WBC 5.7 (4.5-11.0) K/mcL Hgb 9.5 L (13.5-16.5) g/dL Hct 28.4 L (41.0-55.0) % Plt Count 277 (140-440) K/mcL BMP 09/21/19 14:44 Sodium 136 Potassium 5.8 H Chloride 89 L Carbon Dioxide 25 BUN 131 H* Creatinine 12.0 H* Glucose 176 H Calcium 9.4 Liver Function 09/21/19 Range/Units 14:44 Total Bilirubin 0.3 (0.0-1.0) mg/dL AST 21 (0-37) U/l ALT 19 (0-40) U/l Alkaline Phosphatase 95 (39-117) U/L Albumin 4.2 (3.2-5.2) gm/dL Medical - H&P: A/P - Narrative A/P Narrative: Acute hypoxic respiratory failure probably due to inadequate dialysis Probable pulmonary edema and vascular congestion Patient end-stage renal disease do dialysis at home Patient had episode of hypotension since then patient was doing inadequate dialysis Discussed with nephrology and planning for dialysis tonight and tomorrow Monitor electrolytes He has hyperkalemia Moderate hyperkalemia Planning for dialysis We will monitor potassium after that Nephrology on board Hypotension and near syncope We will monitor him telemetry Ordered an echocardiogram Trending the troponin No evidence of any infection Patient is not producing any urine no urine symptoms Reported history of hypertension We will monitor his blood pressure Hold blood pressure medications for now Monitor him during dialysis Recurrent history of CVA History of diabetes and hypertension and multiple episodes of stroke Patient is on aspirin and Plavix We will continue both MRI showed acute lacunar infarct Type 2 diabetes We will continue his home medications and sliding scale insulin History anxiety Continue his home medications Tobacco dependence Nicotine patch Anemia of chronic disease Monitor his hemoglobin Essential hypertension We will restart his home medications and monitor blood pressure and restart accordingly DVT prophylaxis-SCDs and subcu heparin CODE STATUS-full code Expected length of stay 1-2 midnights
[2019-09-21] MEDS ORDERED: ONDANSETRON 4 MG/2 ML VIAL IV PRN (17:46)
[2019-09-21] MEDS ORDERED: ACETAMINOPHEN 325 MG TABLET PO PRN (17:46)
[2019-09-21 18:54] LABS: ALT/SGPT 16 U/l (0-40); AST/SGOT 18 U/l (0-37); Albumin 3.9 gm/dL (3.2-5.2); Albumin/Globulin Ratio 1.4 (1.0-2.3); Alkaline Phosphatase 90 U/L (39-117); Bilirubin,Total 0.3 mg/dL (0.0-1.0); Calcium 8.5 mg/dl (8.6-10.4); Carbon Dioxide 25 mmol/L (22-30); Globulin 2.7 gm/dL (2.2-3.7); Glucose 246 mg/dL (70-105)
[2019-09-21 19:03] LABS: Blood Urea Nitrogen 135 mg/dl (6-20); Chloride 93 mmol/L (96-108); Glomerular Filtration Rate 4
[2019-09-21] MEDS ORDERED: clonazePAM 1 MG TABLET PO PRN (21:34)
[2019-09-21] MEDS: 0.9 % SODIUM CHLORIDE 10 ML SYRINGE IV SCH (22:58)
[2019-09-21] MEDS: INSULIN GLARGINE, HUMAN 1 UNIT/0.01 ML SQ SCH (23:06)
[2019-09-21] MEDS ORDERED: DEXTROSE 50% 50 ML VIAL IV PRN (23:15)
[2019-09-21] MEDS ORDERED: DEXTROSE 31 GM ORAL.SUSP PO PRN (23:15)
[2019-09-22] MEDS: ATORVASTATIN 20 MG TABLET PO SCH ×2 (00:15→22:40)
[2019-09-22] MEDS: DOCUSATE SODIUM 100 MG CAPSULE PO SCH ×3 (00:15→22:38)
[2019-09-22] MEDS: SENNOSIDES 1 TABLET PO SCH ×2 (00:15→22:40)
[2019-09-22] MEDS: cloNIDine HCL 0.1 MG TABLET PO SCH ×2 (00:16→22:38)
[2019-09-22] MEDS: METHADONE 5 MG TABLET PO SCH ×5 (00:17→22:38)
[2019-09-22] MEDS: HEPARIN 5,000 UNIT/ML VIAL SQ SCH ×4 (00:28→22:40)
--- NOTE | 2019-09-22 03:13 | Emergency Department Note ---
ED Note Addendum Note Addendum: I saw this patient with Kimani Laird PA-C. I agree with his evaluation management documentation. In particular we discussed patient's overall health status and need for ongoing dialysis. We discussed admission
[2019-09-22] MEDS: 0.9 % SODIUM CHLORIDE 10 ML SYRINGE IV SCH ×3 (07:11→22:40)
[2019-09-22 07:13] LABS: Basophils # (Auto) 0.1 K/mcL (0.0-0.3); Basophils % (Auto) 2.1 % (0.0-2.0); Eosinophils # (Auto) 0.2 K/mcL (0.0-0.7); Eosinophils % (Auto) 4.2 % (0.0-7.0); Granulocytes % (Auto) 53.2 % (38.0-78.0); Hematocrit 26.8 % (41.0-55.0); Hemoglobin 8.9 g/dL (13.5-16.5); Lymphocytes % (Auto) 21.6 % (15.5-49.0); Mean Corpuscular HGB Conc 33.2 g/dL (31.0-36.0); Monocytes # (Auto) 0.8 K/mcL (0.1-0.9); Monocytes % (Auto) 18.9 % (1.0-12.0); Platelet Count 248 K/mcL (140-440); RBC 2.89 M/mcL (4.50-5.90); Red Cell Distribution Width 15.9 % (11.5-14.5); WBC 4.5 K/mcL (4.5-11.0)
[2019-09-22 07:40] LABS: ALT/SGPT 18 U/l (0-40); AST/SGOT 20 U/l (0-37); Albumin 3.6 gm/dL (3.2-5.2); Albumin/Globulin Ratio 1.3 (1.0-2.3); Alkaline Phosphatase 87 U/L (39-117); Bilirubin,Total 0.2 mg/dL (0.0-1.0); Calcium 8.6 mg/dl (8.6-10.4); Carbon Dioxide 24 mmol/L (22-30); Globulin 2.7 gm/dL (2.2-3.7); Glucose 222 mg/dL (70-105)
[2019-09-22 07:48] LABS: Blood Urea Nitrogen 59 mg/dl (6-20); Chloride 95 mmol/L (96-108); Glomerular Filtration Rate 8
--- NOTE | 2019-09-22 08:33 | Nephrology Progress Note ---
Subjective Patient information: Note initiated : 09/22/19 at 8:30 am Patient: Conner Khan 49 y/o M admitted on 09/21/19 for Breathing difficulty, blood pressure problems. Chief Complaint: Weakness Pertinent ROS: Weakness No edema No chest pain Objective - Vital Signs Vital signs: Vital Signs Temp Pulse Pulse Resp BP BP Pulse Ox 09/22/19 07:14 72 12 98 09/22/19 03:15 97.9 F 72 12 156/80 98 09/22/19 00:05 96.7 F L 65 12 154/88 99 09/22/19 00:04 96.7 F L 68 151/89 09/21/19 23:40 65 150/84 09/21/19 23:09 93 H 141/92 09/21/19 22:39 71 149/86 09/21/19 22:10 69 172/95 09/21/19 21:40 71 182/100 09/21/19 21:11 97.8 F 61 177/98 09/21/19 19:31 98.0 F 70 12 202/103 100 09/21/19 19:29 97.3 F 63 11 L 179/87 100 09/21/19 19:21 11 L 179/87 09/21/19 19:01 11 L 170/91 09/21/19 18:41 12 178/81 09/21/19 18:21 11 L 166/83 09/21/19 18:01 12 169/84 09/21/19 17:41 11 L 168/88 09/21/19 17:21 10 L 177/82 09/21/19 17:01 63 9 L 180/82 100 09/21/19 16:41 66 12 179/94 100 09/21/19 16:21 66 12 178/92 100 09/21/19 16:01 67 10 L 186/85 100 09/21/19 15:41 63 12 181/86 100 09/21/19 15:28 63 7 L 191/88 100 09/21/19 14:58 63 12 175/81 100 09/21/19 14:39 65 14 169/86 100 09/21/19 14:32 65 15 72/62 100 09/21/19 14:29 64 12 104/34 100 09/21/19 14:05 97.3 F 65 16 182/84 100 Intake and Output 09/21/19 09/22/19 09/22/19 21:59 05:59 13:59 Intake Total 125 Output Total 1999 Balance -1874 Intake: Oral 125 Output: Hemodialysis UF 1999 Other: Meal 2 sandwiches (egg salad & turkey) Percent of Meal Consumed 100% Feeding Ability Assist with Tray Set Up Weight 158 lb 8 oz Intake & Output: Intake & Output 09/21/19 09/22/19 09/22/19 21:59 05:59 13:59 Intake Total 125 Output Total 1999 Balance Weight 158 lb 8 oz Intake: Oral 125 Output: Hemodialysis UF 1999 Other: Meal 2 sandwiches (egg salad & turkey) Percent of Meal Consumed 100% Feeding Ability Assist with Tray Set Up - General Appearance General appearance: chronically ill, fatigue EENT: mucous membranes dry Neck: supple Respiratory: clear Cardiology: no edema Gastrointestinal: no tenderness Integumentary: warm and dry Neurologic: no focal deficit, alert and oriented x3 Musculoskeletal: no deformities Psychiatric: mood/affect appropriate, cooperative - Lab 09/22/19 05:43 09/22/19 05:43 Most recent lab results Calcium 8.6 mg/dl (8.6-10.4) 09/22/19 05:43 Magnesium 2.5 mg/dL (1.6-2.5) 09/22/19 05:43 Assessment and Plan (1) End stage renal disease Conner Khan is a 49-year-old male with end-stage renal disease on home hemodialysis, diabetes mellitus type 2, hypertension, hypothyroidism, chronic obstructive pulmonary disease presented to the emergency department on 09/21/19. The patient gets home hemodialysis with help from his . He had an episode of hypotension on Friday and instructed for IV fluids. He completed the treatment. He has cough and shortness of breath, but no chest pain. He did not pass out. His work up was significant for inadequate clearance with hyperkalemia. He had AV fistula clotting requiring procedures recently and did not receive his treatments regularly. End-stage renal disease on home hemodialysis ([facility]; 5 times weekly), through left arm AV fistula with button hole technique by his . Recent AV fistula clotting requiring procedures, tolerates QB 400. Recent intradialytic hypotension episode at home. Recent Echo on 02/21/19: LVEF 65-70, no significant valvular disease, trace pericardial effusion. Progress: Tolerated hemodialysis well yesterday evening. Plan: Hemodialysis today for 3 hours and 2 kg UF target. Okay for his to cannulate AVF with buttonhole. Hold antihypertensives. Near syncope work up by hospitalist team. Status: Chronic Priority: Medium (2) Hyperkalemia Status: Resolved Priority: Medium (3) Intra-dialytic hypotension Status: Resolved Priority: Medium
[2019-09-22] MEDS: INSULIN LISPRO 1 UNIT/0.01 ML UNIT SQ SCH ×4 (09:16→23:01)
[2019-09-22] MEDS: ASPIRIN 81 MG TAB.CHEW PO SCH (09:32)
[2019-09-22] MEDS: amLODIPine 10 MG TABLET PO SCH (09:32)
[2019-09-22] MEDS: CLOPIDOGREL 75 MG TABLET PO SCH (09:32)
[2019-09-22] MEDS ORDERED: LANTHANUM CARBONATE 500 MG TAB.CHEW PO PRN (10:28)
--- NOTE | 2019-09-22 11:53 | Internal Med Progress Note ---
Medical - PN: Subj Patient information: Note initiated : 09/22/19 at 11:52 am Service Date, if different from initiated Date: [] Patient: Conner Khan 49 y/o M admitted on 09/21/19 for Breathing difficulty, blood pressure problems. Chief Complaint: [] Interval history: 49-year-old gentleman with a history of recurrent CVA, end-stage renal disease, on home dialysis, type 2 diabetes, essential hypertension, anxiety was brought to the ER because of chest congestion and shortness of breath. Patient does dialysis at home with his help of his . Patient had an episode of presyncope and hypotension 2 days ago since then patient was not doing dialysis adequately he was removing only 1 L. Since then patient noticed worsening shortness of breath and chest congestion. Patient denied any fever chills no cough no increasing sputum production. No urine symptoms patient does not make any urines no dysuria no pain no burning sensation. Denied any diarrhea. Patient mentioned have history of previous C. difficile but no active diarrhea. 09/22-patient underwent dialysis run yesterday by nephrology and planning to continue dialysis today. Patient denied any chest pain his troponin remained slightly elevated but did not peak no episodes of chest pain EKG did not show any acute ischemic changes. Patient most likely has subendocardial disease or probable nonocclusive coronary disease. I strongly encouraged the patient to follow-up with outpatient cardiology in a week time and needs further evaluation and ischemic work-up with his risk factors. Telemetry was unremarkable. He needs to have another round of dialysis and reevaluate his troponin pending echocardiogram and then physical therapy needs to work with him before discharge. If he continues to progress can be discharged tomorrow. Pertinent ROS: Review of systems General-distress improved, no pain CVS-no chest pain no palpitations no syncope Respiratory-shortness of breath improved chest congestion improved occasional cough Abdomen-no diarrhea no constipation no pain Neuro-no dizziness no focal neuro deficit no seizures Psychiatry-anxiety improved no agitations - Constitutional Vitals: Vital Signs Temp Pulse Resp BP Pulse Ox 97.0 F 59 L 12 167/87 100 09/22/19 08:00 09/22/19 08:00 09/22/19 08:00 09/22/19 08:00 09/22/19 08:00 Period Temp Pulse Resp BP Sys/Joshua Pulse Ox Last 24 Hr 96.7 F-98.0 F 59-93 7-16 72-202/34-103 98-100 Intake and Output 09/21/19 09/22/19 09/22/19 21:59 05:59 13:59 Intake Total 125 Output Total 1999 Balance -1875 Weight 158 lb 8 oz Intake & Output: Intake & Output 09/21/19 09/22/19 09/22/19 21:59 05:59 13:59 Intake Total 125 Output Total 1999 Balance -187 Weight 158 lb 8 oz Intake: Oral 125 Output: Hemodialysis UF 1999 Other: Meal 2 sandwiches (egg salad & turkey) Percent of Meal Consumed 100% Feeding Ability Assist with Tray Set Up General appearance: mild distress - Head Head exam: Present: atraumatic, normal inspection - Eye Eye exam: Present: normal appearance. Absent: nystagmus, periorbital swelling, periorbital tenderness - ENT ENT exam: Present: mucous membranes dry, normal exam, normal external ear exam - Neck Neck exam: Present: normal inspection. Absent: lymphadenopathy, meningismus - Respiratory Respiratory exam: Present: accessory muscle use, decreased breath sounds, wheezes - Cardiovascular Cardiovascular exam: Present: normal rate and rhythm. Absent: bradycardia, diastolic murmur, gallop - GI/Abdominal GI/Abdominal exam: Present: normal bowel sounds, soft, distended. Absent: guarding, tenderness - Neurological Exam Neurological exam: Present: alert, oriented X3. Absent: motor sensory deficit - Psychiatric Psychiatric exam: Present: flat affect. Absent: agitated, anxious Medical - PN: Obj Da - Labs CBC & Chem 7: 09/22/19 05:43 09/22/19 05:43 Labs: Abnormal Lab Results 09/22/19 09/22/19 09/22/19 05:43 05:43 05:43 RBC 2.89 L Hgb 8.9 L Hct 26.8 L RDW 15.9 H [place] % (Auto) 18.9 H Baso % (Auto) 2.1 H Lymph # (Auto) 1.0 L Potassium Chloride 95 L Anion Gap 17.0 H BUN 59 H Creatinine 7.3 H* Glucose 222 H Calcium Magnesium Troponin T 0.12 H* 09/22/19 09/21/19 09/21/19 00:17 17:58 17:58 RBC Hgb Hct RDW [place] % (Auto) Baso % (Auto) Lymph # (Auto) Potassium 6.4 H* Chloride 93 L Anion Gap 17.0 H BUN 135 H* Creatinine 12.3 H* Glucose 246 H Calcium 8.5 L Magnesium 2.9 H Troponin T 0.13 H* 0.12 H* 09/21/19 09/21/19 14:44 14:44 RBC 3.08 L Hgb 9.5 L Hct 28.4 L RDW 16.2 H [place] % (Auto) 15.4 H Baso % (Auto) Lymph # (Auto) 1.0 L Potassium 5.8 H Chloride 89 L Anion Gap 22.0 H BUN 131 H* Creatinine 12.0 H* Glucose 176 H Calcium Magnesium Troponin T Meds: Medications Acetaminophen (Tylenol) 650 mg PO Q6HP PRN; Protocol PRN Reason: Per Pain Protocol/Fever > 101 Last Admin: 09/21/19 23:06 Dose: 650 mg Documented by: Amlodipine Besylate (Norvasc) 10 mg PO DAILY [facility] Last Admin: 09/22/19 09:32 Dose: 10 mg Documented by: Aspirin (Aspirin) 81 mg PO DAILY [facility] Last Admin: 09/22/19 09:32 Dose: 81 mg Documented by: Atorvastatin Calcium (Lipitor) 20 mg PO HS [facility] Last Admin: 09/22/19 00:15 Dose: 20 mg Documented by: Clonazepam (Klonopin) 1 mg PO HSP PRN PRN Reason: Sleep Clonidine HCl (Catapres) 0.1 mg PO QHS [facility] Last Admin: 09/22/19 00:16 Dose: 0.1 mg Documented by: Clopidogrel Bisulfate (Plavix) 75 mg PO DAILY [facility] Last Admin: 09/22/19 09:32 Dose: 75 mg Documented by: Dextrose (Dextrose 50%) 0 ml IV UD PRN PRN Reason: Hypoglycemia Diagnostic Test (Pha) (Accu-Chek) 1 each FS ACHS [facility] Last Admin: 09/22/19 11:26 Dose: 1 each Documented by: Docusate Sodium (Colace) 100 mg PO BID [facility] Last Admin: 09/22/19 09:31 Dose: 100 mg Documented by: Glucose (Insta-Glucose) 15 gm PO PRN PRN PRN Reason: Hypoglycemia Heparin Sodium (Porcine) (Heparin) 5,000 unit SQ Q12 [facility] Last Admin: 09/22/19 09:36 Dose: Not Given Documented by: Insulin Glargine (Lantus) 8 unit SQ BID@ [facility] Last Admin: 09/21/19 23:06 Dose: 8 units Documented by: Insulin Human Lispro (Humalog) 0 unit SQ ACHS [facility]; Protocol Last Admin: 09/22/19 11:27 Dose: Not Given Documented by: Lanthanum Carbonate (Fosrenol) 1,000 mg PO TIDCC [facility] Lanthanum Carbonate (Fosrenol) 500 mg PO PRN PRN PRN Reason: SNACKS Methadone HCl (Dolophine) 10 mg PO TID [facility] Last Admin: 09/22/19 09:34 Dose: 5 mg Documented by: Ondansetron HCl (Zofran) 4 mg IV Q6HP PRN PRN Reason: Nausea And Vomiting Senna (Senokot) 2 tab PO HS [facility] Last Admin: 09/22/19 00:15 Dose: 2 tab Documented by: Sodium Chloride (Saline Flush) 10 ml IV Q8 [facility] Last Admin: 09/22/19 07:11 Dose: 10 ml Documented by: Medical - PN: A/P - Time Spent With Patient Total time spent is greater than 50% in coordination of care (as documented) at patient's floor/unit and/or counseling patient: - Narrative A/P Narrative: Acute hypoxic respiratory failure probably due to inadequate dialysis Probable pulmonary edema and vascular congestion Patient end-stage renal disease do dialysis at home Patient had episode of hypotension since then patient was doing inadequate dialysis Patient underwent a round of dialysis yesterday and planning to continue today Monitor electrolytes monitor electrolytes His potassium improved Non-ST elevation MD-probably type II Troponin 0 0.12 and plateaued around that number Rechecking another troponin this afternoon Pending echocardiogram Discussed with the patient and encouraged him to follow-up with outpatient cardiology and would benefit from Lexiscan stress test or angiogram because of his high risk factors Moderate hyperkalemia-improved Urology plan to continue dialysis today Hypotension and near syncope We will monitor him telemetry Ordered an echocardiogram Troponin was slightly elevated 0.12 but no peaking No evidence of any infection Patient is not producing any urine no urine symptoms Reported history of hypertension We will monitor his blood pressure Hold blood pressure medications for now Monitor him during dialysis Recurrent history of CVA History of diabetes and hypertension and multiple episodes of stroke Patient is on aspirin and Plavix We will continue both MRI showed acute lacunar infarct Type 2 diabetes We will continue his home medications and sliding scale insulin History anxiety Continue his home medications Tobacco dependence Nicotine patch Anemia of chronic disease Monitor his hemoglobin Essential hypertension We will restart his home medications and monitor blood pressure and restart accordingly DVT prophylaxis-SCDs and subcu heparin CODE STATUS-full code Expected length of stay 1- midnights Medical - PN: Qual - VTE Deep Vein Thrombosis/Pulmonary Embolism Present on Admission: No
[2019-09-22] MEDS ORDERED: LANTHANUM CARBONATE 500 MG TAB.CHEW PO SCH (12:00)
[2019-09-22] MEDS: INSULIN GLARGINE, HUMAN 1 UNIT/0.01 ML SQ SCH ×2 (12:58→23:01)
[2019-09-22] MEDS ORDERED: CALCIUM ACETATE 667 MG CAPSULE PO SCH ×2 (15:16→17:30)
[2019-09-22] MEDS ORDERED: CALCIUM ACETATE 667 MG CAPSULE PO PRN (15:22)
[2019-09-23 06:09] LABS: Basophils # (Auto) 0.1 K/mcL (0.0-0.3); Basophils % (Auto) 2.2 % (0.0-2.0); Eosinophils # (Auto) 0.2 K/mcL (0.0-0.7); Eosinophils % (Auto) 4.7 % (0.0-7.0); Granulocytes % (Auto) 48.8 % (38.0-78.0); Hematocrit 26.5 % (41.0-55.0); Hemoglobin 8.9 g/dL (13.5-16.5); Lymphocytes # (Auto) 1.1 K/mcL (1.5-4.8); Lymphocytes % (Auto) 25.6 % (15.5-49.0); Mean Cell Volume 93.1 fL (80.0-100.0); Mean Corpuscular HGB Conc 33.8 g/dL (31.0-36.0); Mean Platelet Volume 8.9 fL (7.4-10.4); Monocytes # (Auto) 0.8 K/mcL (0.1-0.9); Monocytes % (Auto) 18.7 % (1.0-12.0); Platelet Count 234 K/mcL (140-440); RBC 2.85 M/mcL (4.50-5.90); Red Cell Distribution Width 15.5 % (11.5-14.5); WBC 4.2 K/mcL (4.5-11.0)
[2019-09-23 06:38] LABS: ALT/SGPT 19 U/l (0-40); AST/SGOT 23 U/l (0-37); Albumin 3.5 gm/dL (3.2-5.2); Albumin/Globulin Ratio 1.3 (1.0-2.3); Alkaline Phosphatase 81 U/L (39-117); Bilirubin,Total 0.2 mg/dL (0.0-1.0); Calcium 8.3 mg/dl (8.6-10.4); Carbon Dioxide 26 mmol/L (22-30); Globulin 2.7 gm/dL (2.2-3.7); Glucose 139 mg/dL (70-105)
[2019-09-23 06:41] LABS: Blood Urea Nitrogen 29 mg/dl (6-20); Chloride 95 mmol/L (96-108); Glomerular Filtration Rate 15
--- NOTE | 2019-09-23 07:08 | Nephrology Progress Note ---
Subjective Patient information: Note initiated : 09/23/19 at 7:06 am Patient: Conner Khan 49 y/o M admitted on 09/21/19 for Breathing difficulty, blood pressure problems. Chief Complaint: Weakness Pertinent ROS: Weakness Anuric No edema Feels at baseline Objective - Vital Signs Vital signs: Vital Signs Temp Pulse Pulse Resp BP BP Pulse Ox 09/23/19 03:34 97.9 F 64 12 159/86 100 09/22/19 22:30 99.0 F 68 12 156/87 98 09/22/19 22:17 99.0 F 74 161/88 09/22/19 21:54 68 159/95 09/22/19 21:24 69 154/95 09/22/19 20:54 61 164/95 09/22/19 20:24 59 L 164/99 09/22/19 19:54 60 168/96 09/22/19 19:20 98.3 F 61 157/92 09/22/19 16:00 97.7 F 65 12 162/80 100 09/22/19 12:00 97.3 F 64 12 157/82 98 09/22/19 08:00 97.0 F 59 L 12 167/87 100 09/22/19 07:14 72 12 98 Intake and Output 09/22/19 09/23/19 09/23/19 21:59 05:59 13:59 Intake Total 700 360 Output Total 1600 Balance 700 -1240 Intake: Nourishment/Supplement quantity 240 (ml) Oral 460 360 Output: Hemodialysis UF 1600 Other: Meal Dinner & Supplement Percent of Meal Consumed 100% Feeding Ability Independent Nourishment/Supplement name Nepro with Carb Steady Stool Consistency Soft # Bowel Movements 1 Weight 155 lb Intake & Output: Intake & Output 09/22/19 09/23/19 09/23/19 21:59 05:59 13:59 Intake Total 700 360 Output Total 1600 Balance 700 -1240 Weight 155 lb Intake: Nourishment/Supplement quantity 240 (ml) Oral 460 360 Output: Hemodialysis UF 1600 Other: Meal Dinner & Supplement Percent of Meal Consumed 100% Feeding Ability Independent Nourishment/Supplement name Nepro with Carb Steady Stool Consistency Soft # Bowel Movements 1 - General Appearance General appearance: chronically ill, fatigue EENT: mucous membranes dry Neck: supple Respiratory: clear Gastrointestinal: no tenderness Neurologic: no focal deficit, alert and oriented x3 Musculoskeletal: no deformities Psychiatric: mood/affect appropriate, cooperative - Lab 09/23/19 04:28 09/23/19 04:28 Most recent lab results Calcium 8.3 mg/dl (8.6-10.4) L 09/23/19 04:28 Magnesium 2.1 mg/dL (1.6-2.5) 09/23/19 04:28 Assessment and Plan (1) End stage renal disease Conner Khan is a 49-year-old male with end-stage renal disease on home hemodialysis, diabetes mellitus type 2, hypertension, hypothyroidism, chronic obstructive pulmonary disease presented to the emergency department on 09/21/19. The patient gets home hemodialysis with help from his . He had an episode of hypotension on Friday and instructed for IV fluids. He completed the treatment. He has cough and shortness of breath, but no chest pain. He did not pass out. H is work up was significant for inadequate clearance with hyperkalemia. He had AV fistula clotting requiring procedures recently and did not receive his treatments regularly. End-stage renal disease on home hemodialysis (NxStage; 5 times weekly), through left arm AV fistula with button hole technique by his . Recent AV fistula clotting requiring procedures, tolerates QB 400. Recent intradialytic hypotension episode at home. Progress: Tolerated hemodialysis well yesterday evening. Plan: Hemodialysis on Friday if still inpatient. Okay for his to cannulate AVF with buttonhole. No hypotensive episodes. BP remains elevated. Antihypertensives may be resumed. Status: Chronic Priority: Medium (2) Hyperkalemia Status: Resolved Priority: Medium (3) Intra-dialytic hypotension Status: Resolved Priority: Medium
[2019-09-23] MEDS: INSULIN LISPRO 1 UNIT/0.01 ML UNIT SQ SCH ×2 (07:44→12:03)
[2019-09-23] MEDS: 0.9 % SODIUM CHLORIDE 10 ML SYRINGE IV SCH ×2 (07:44→15:54)
[2019-09-23] MEDS: LANTHANUM CARBONATE 500 MG TAB.CHEW PO SCH ×2 (08:27→12:56)
[2019-09-23] MEDS: METHADONE 5 MG TABLET PO SCH ×2 (08:51→15:54)
[2019-09-23] MEDS: CLOPIDOGREL 75 MG TABLET PO SCH (08:51)
[2019-09-23] MEDS: DOCUSATE SODIUM 100 MG CAPSULE PO SCH (08:52)
[2019-09-23] MEDS: ASPIRIN 81 MG TAB.CHEW PO SCH (08:53)
[2019-09-23] MEDS: HEPARIN 5,000 UNIT/ML VIAL SQ SCH (08:53)
[2019-09-23] MEDS: amLODIPine 10 MG TABLET PO SCH (08:53)
[2019-09-23] MEDS ORDERED: NICOTINE 14 MG PATCH TOPICAL SCH (10:00)
[2019-09-23] MEDS ORDERED: EPOETIN ALFA 10000 UNIT SC SCH (10:30)
[2019-09-23] MEDS ORDERED: INSULIN GLARGINE, HUMAN 1 UNIT/0.01 ML SQ SCH (11:00)
--- NOTE | 2019-09-23 14:27 | Discharge Summary ---
Medical - DS: Prov Patient information: Note initiated : 09/23/19 at 2:24 pm Service Date, if different from initiated Date: [] Patient: Conner Khan 49 y/o M admitted on 09/21/19 for Breathing difficulty, blood pressure problems. Chief Complaint: [] Refer to H&P by Mariano Melgar M.D. on 09/21/19 This is a 49-year-old gentleman with a history of recurrent CVA, end-stage renal disease, on home dialysis, type 2 diabetes, essential hypertension, anxiety was brought to the ER because of chest congestion and shortness of breath. Patient does dialysis at home with his help of his . Patient had an episode of presyncope and hypotension 2 days ago since then patient was not doing dialysis adequately he was removing only 1 L. Since then patient noticed worsening shortness of breath and chest congestion. Patient denied any fever chills no cough no increasing sputum production. No urine symptoms patient does not make any urines no dysuria no pain no burning sensation. Denied any diarrhea. Patient mentioned have history of previous C. difficile but no active diarrhea. Date of admission: 09/21/19 19:29 Discharge date: 09/23/19 Primary care physician: Gasper Clarke Admitting clinician: Mariano Melgar Attending physician on admission: Mariano Melgar Consults: 09/21/19 Consult to Physician [CONS] Stat Comment: Consulting Provider: Mariano Melgar Reason For Exam: Physician to Consult Consult to Physician [CONS] Stat Comment: Consulting Provider: Payam Kang Reason For Exam: Physician to Consult Attending physician on discharge: Gypsy Pedro Discharging clinician: Gypsy Pedro Medical - DS: Meds - Discharge Medications Active and Home Medications: Home Medications Epoetin Chris [Epogen] 10,000 unit SC WEEKLY 05/23/15 [History Confirmed 09/21/19 Last Taken 09/14/19] Insulin Glargine, Human [Lantus] 8 units SC BID@05/23/15 [History Confirmed 09/21/19 Last Taken 02/20/19 11:00] Lanthanum Carbonate [Fosrenol] 1,000 mg CHEWED TIDCC 05/23/15 [History Confirmed 09/21/19 Last Taken 09/21/19] Lanthanum Carbonate [Fosrenol] 500 mg CHEWED BIDP PRN 05/23/15 [History Confirmed 09/21/19 Last Taken 02/21/19] Levothyroxine [Synthroid] 50 mcg PO DAILY 05/23/15 [History Confirmed 09/21/19 Last Taken 09/20/19] clonazePAM [KlonoPIN] 1 mg PO HSP PRN 05/23/15 [History Confirmed 09/21/19 Last Taken 09/07/19] Calcium Carbonate [Tums] 1,000 mg PO QHS 02/21/19 [History Confirmed 09/21/19 Last Taken 09/19/19] Clopidogrel Bisulfate [Plavix] 75 mg PO DAILY 02/21/19 [History Confirmed 09/21/19 Last Taken 09/20/19] Methadone HCl [Dolophine HCl] 10 mg PO TID 02/21/19 [History Confirmed 09/21/19 Last Taken 09/20/19] Nut.tx.impaired Renal Fxn,Soy [Nepro] 237 ml PO Q4H 02/21/19 [History Confirmed 09/21/19 Last Taken 09/21/19] No122/Iron/Folic Acid [ Multi Tablet] 1 each PO DAILY 02/21/19 [History Confirmed 09/21/19 Last Taken 02/20/19] amLODIPine [Norvasc] 10 mg PO DAILY 02/21/19 [History Confirmed 09/21/19 Last Taken 09/18/19] Aspirin 81 mg PO DAILY #21 tab.chew 02/22/19 [Rx Confirmed 09/21/19 Last Taken 09/20/19] Atorvastatin [Lipitor] 20 mg PO HS #30 tab 02/22/19 [Rx Confirmed 09/21/19 Last Taken 09/20/19] Insulin Lispro [HumaLOG] 0 unit SQ CCHS PRN 09/21/19 [History Confirmed 09/21/19 Last Taken Unknown] Lisinopril [Zestril] 40 mg PO DAILY 09/21/19 [History Confirmed 09/21/19 Last Taken 09/18/19] Ondansetron HCl [Zofran] 1 - 2 tab PO TIDP PRN 09/21/19 [History Confirmed 09/05 04/23 Last Taken Unknown] cloNIDine HCL [Catapres] 0.1 mg PO QHS 09/21/19 [History Confirmed 09/21/19 Last Taken 09/20/19] oxyCODONE HCL [Roxybond] 15 mg PO QIDP PRN 09/21/19 [History Confirmed 09/21/19 Last Taken Unknown] Medical - DS: Hosp Hospital Course: 49-year-old gentleman with a history of recurrent CVA, end-stage renal disease, on home dialysis, type 2 diabetes, essential hypertension, anxiety was brought to the ER due to chest congestion and shortness of breath. Acute hypoxic respiratory failure probably due to inadequate dialysis. Patient underwent a round of dialysis 2 days ago and yesterday. Now his sob significantly improved. Pt had one episode of near syncope. Denies LOC. No focal neurological signs. Discussed with cloth trimmer hand Dr. Kang, who cleard him to be discharged to home today. helps him to have HD at home. As per Dr. Kang, Okay for his to cannulate AVF with buttonhole. Troponin 0 0.12 and plateaued around that number. Echo pending. f/u with cardiology. In the hospital, he had one episode of hypoglycermia. Lantus was decreased to 6units bid from 8units bid. Check BG before each meal and bedtime. Adjust insulin accordingly. PT/OT ok to home. Today patient does not have any complaints and vitals are stable. She will be discharged home to follow with PCP, cardiology and nephrology. Call PCP for any medical issues. Discharge diagnosis: Acute hypoxic respiratory failure probably due to inadequate dialysis - Time Spent with Patient Total time spent providing and/or coordinating discharge services: Greater than 30 minutes Medical - DS: Exam - Constitutional Vitals: Vital Signs Temp Pulse Pulse Resp BP BP Pulse Ox 09/23/19 12:00 98.2 F 65 12 146/86 100 09/23/19 08:00 97.6 F 65 12 164/92 97 09/23/19 03:34 97.9 F 64 12 159/86 100 09/22/19 22:30 99.0 F 68 12 156/87 98 09/22/19 22:17 99.0 F 74 161/88 09/22/19 21:54 68 159/95 09/22/19 21:24 69 154/95 09/22/19 20:54 61 164/95 09/22/19 20:24 59 L 164/99 09/22/19 19:54 60 168/96 12/18/19 19:20 98.3 F 61 157/92 09/22/19 16:00 97.7 F 65 12 162/80 100 Intake and Output 09/23/19 09/23/19 09/23/19 05:59 13:59 21:59 Intake Total 360 Output Total 1600 Balance -1240 Intake: Oral 360 Output: Hemodialysis UF 1600 Other: Stool Consistency Soft # Bowel Movements 1 Weight 70.307 kg General appearance: cooperative, no acute distress - Head Head exam: Present: atraumatic, normocephalic - Eye Eye exam: Present: EOMI, PERRL - ENT ENT exam: Present: normal exam - Neck Neck exam: Present: normal inspection - Respiratory Respiratory exam: Present: CTAB - Cardiovascular Cardiovascular exam: Present: normal rate and rhythm - GI/Abdominal GI/Abdominal exam: Present: normal bowel sounds, soft - Extremities Exam Extremities exam: Present: full ROM, normal inspection, Danyelle's sign (Negative) - Neurological Exam Neurological exam: Present: alert, oriented X3 (No focal neurological deficits) - Psychiatric Psychiatric exam: Present: normal affect Medical - DS: Data Labs on day of discharge: Labs from last 24 hours 09/23/19 09/23/19 04:28 04:28 WBC 4.2 L RBC 2.85 L Hgb 8.9 L Hct 26.5 L MCV 93.1 MCH 31.4 MCHC 33.8 RDW 15.5 H Plt Count 234 MPV 8.9 Gran % 48.8 Lymph % (Auto) 25.6 Clarke % (Auto) 18.7 H Eos % (Auto) 4.7 Baso % (Auto) 2.2 H Gran # 2.0 Lymph # (Auto) 1.1 L Clarke # (Auto) 0.8 Eos # (Auto) 0.2 Baso # (Auto) 0.1 Sodium 134 Potassium 4.2 Chloride 95 L Carbon Dioxide 26 Anion Gap 13.0 BUN 29 H Creatinine 4.3 H GFR Calculation 15 Glucose 139 H Calcium 8.3 L Magnesium 2.1 Total Bilirubin 0.2 AST 23 ALT 19 Alkaline Phosphatase 81 Total Protein 6.2 Albumin 3.5 Globulin 2.7 Albumin/Globulin Ratio 1.3 Medical - DS: A/P - Patient/Caregiver Discharge Instructions Activity: resume usual activities as tolerated Diet: Consistent Carbohydrate, Renal/Consistent Carbs - Problem Maintenance (1) ESRD (end stage renal disease) on dialysis Status: Acute - Follow up Plan Follow up with: Gasper Clarke MD [Primary Care Provider] - Disposition: Home, Self-Care Care Plan Goals: This discharge packet is provided to you to help keep you informed about your care. We want to ensure you get everything you need when you go home. You will also be receiving a call from us in a few days to follow up with you and see how you are doing since your discharge. This gives us a chance to listen to any c oncerns you maybe experiencing since you were discharged or any additional needs you may have, as well as providing us feedback on your care experience. We strive to always provide excellent care and thank you for your feedback and for choosing [facility]. Prognosis: Fair Rehab Potential: Fair Medical - DS: Qual - VTE Deep Vein Thrombosis/Pulmonary Embolism Present on Admission: No
[2019-09-23] MEDS ORDERED: CALCIUM CARBONATE 500 MG TAB.CHEW PO SCH (21:00)
[2019-09-24] MEDS ORDERED: LISINOPRIL 20 MG TABLET PO SCH (09:00)
== END 2019-09-23 15:45 | disposition home or self-care (01) | DRG 189 ==
LOC: ED 14:02 → MEDSUR 19:29
PROVIDERS: ADMIT Internal Medicine; ATTEND Internal Medicine